=== PATIENT | male | born 1985 | race Caucasian/White ===

== ENCOUNTER 2018-03-07 15:53 | Emergency (ER) | payer SELFPAY ==
[2018-03-07 15:54] VITALS: BP 155/77; PULSE 95; RESP 15; RESP 18; TEMP 36.6; O2SAT 96; O2SAT 97; BMI 34.4
--- NOTE | 2018-03-07 16:21 | ED.DCSUM_ITS ---
- ER Visit Summary Date of Service: 03/07/18 Chief Complaint: Elevated blood pressure History of Present Illness: The patient is a 33 M presents with elevated blood pressure that has been getting worse over the past week. Patient states it is worse when he is at work doing physical activity. Patient states that blood pressure improves when he is at rest. Patient states when his blood pressure is elevated developed a bitemporal headache and some pain across his lower thoracic area. Patient states he also gets some intermittent short stabbing pains in the left upper chest near the shoulder. Patient denies any shortness of breath. Patient denies any nausea or vomiting. Patient denies any visual changes. Patient denies any urinary complaints. Patient denies any other symptoms. Patient states he has a prior history of hypertension and has been on Cartia in the past grade patient states he is not currently on any antihypertensive medication. Physical Examination: Vital signs are stable. Patient is afebrile. Patient is in no acute distress. Oral mucosa is pink and moist. Neck is supple. Trachea is midline. There is no JVD noted. Heart was regular rate and rhythm. Lungs are clear and equal bilateral. Abdomen is soft. Bowel sounds are normal. There is no tenderness. There is no guarding noted. Skin is warm dry. Cranial nerves II through XII are intact. There are no focal motor or sensory deficits noted. The remaining physical exam is within normal limits. Test Results: CBC, comprehensive metabolic profile, and urinalysis were obtained and were all normal. Emergency Department Course and Treatment: Patient's blood pressure was only mildly elevated throughout his emergency department stay. Patient was instructed to follow-up with his primary care physician in 3-5 days. Patient was instructed to keep a log of his blood pressures. At this point, I do not feel the patient needs to be started on any antihypertensive medication. Patient was instructed to return if worse in any way. Patient understood and was agreeable with the plan. All questions were answered. Disposition: Discharge home Impression: Hypertension This note was generated with [employer] dictation software. It may contain incorrect words, spelling, and punctuation that were not noted in review of the chart prior to signing ED Disposition - Plan for ED Patient: Disposition: Home or Assisted Living Chief Complaint: Hypertension Diagnosis: Hypertension Instructions: ED Hypertension Poss Referrals: NOT,DEFINED [NON-STAFF] - Preet Childress DO [STAFF PHYSICIAN] -
[2018-03-07 16:47] LABS: Bacteria 0 SEEN /hpf (None Seen); Red Blood Cells-Urine 0 SEEN /hpf (0-5); Squamous Epithelial Cells - UA 0 SEEN /hpf (0-5); White Blood Cells 0 SEEN /hpf (0-5)
[2018-03-07 16:50] LABS: Color, Urine Yellow (Yellow); Glucose, Dipstick Normal (Normal); Ketone-Dipstick Negative (Negative); Leukocyte Esterase-Dipstick Negative /ul (Negative); Nitrite-Dipstick Negative (Negative); Occult Blood-Urine Negative /ul (Negative); Protein-Dipstick Negative (Negative); Specific Gravity, Urine 1.025 (1.002-1.030); Urine Bilirubin Dipstick Negative (Negative); Urine Clarity Clear (Clear); Urine Urobilinogen Normal (Normal)
[2018-03-07 16:51] LABS: Absolute Neutrophil Count 6.2 X10^3/uL (2.0-7.7); Basophil# 0.02 X10^3/uL; Basophil% 0.2 % (0-1); Eosinophil# 0.14 X10^3/uL; Eosinophils% 1.5 % (0-5); Hematocrit 46.4 % (40-54); Hemoglobin 16.2 g/dl (13.0-16.5); Lymphocyte % 21.5 % (19-41); Mean Corp Hgb Conc 34.9 g/gl (32-36); Mean Corpuscular Hgb 30.3 pg (27.0-32.0); Mean Corpuscular Volume 86.9 fL (80-94); Mean Platelet Vol. 10.4 fl (6.2-12.0); Monocyte# 0.93 X10^3/uL; Neutrophil % 66.5 % (47-70); Platelet Count 269 K/mm3 (150-450); RBC Distribution Width CV 12.6 % (11.6-14.6); RBC Distribution Width SD 39.8 fl (35.1-43.9); Red Blood Count 5.34 M/mm3 (4.6-6.2); White Blood Count 9.3 K/mm3 (4.4-11.0)
[2018-03-07 17:03] LABS: Anion Gap 7 (5-15); BUN 17 mg/dL (7-18); BUN/Creat Ratio 16.3 RATIO (10-20); Chloride 105 mmol/L (98-107); Creatinine, Serum 1.04 mg/dL (0.70-1.30); EST Glomerular Filtration Rate 87 mL/min (>60); Est Glom Filt Rate - Afr Amer 105 mL/min (>60); Estimated Creatinine Clearance 90.32 ml/min; Glucose 88 mg/dL (74-106); POSITIVE COUNT NO; POSITIVE DIFFERENTIAL NO; POSITIVE MORPHOLOGY NO; Potassium 4.1 mmol/L (3.5-5.1); Sodium Level 139 mmol/L (136-145)
[2018-03-07 17:40] LABS: Mucous, Urine RARE /hpf (<or=2+)
[2018-03-07 18:09] VITALS: BP 153/98; PULSE 71; RESP 16; O2SAT 100
[2018-03-07 18:24] VITALS: BP 151/78; PULSE 69; RESP 16; O2SAT 98
--- OUTSIDE RECORDS SUMMARY | 2018-05-09 22:54 | XMS RPT_ITS ---
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 pleural thickening. BONES: Normal. No fracture or visible bony lesion. OTHER: Negative. CONCLUSION: No acute disease. Dictated by: Paulette Sneed MD on 12/14/2017 at 6:40 Approved by: Paulette Sneed MD on 12/14/2017 at 6:40 EMERGENCY REPORT Observed: 12/13/2017 Status: F Source: [facility] 7:33 PM [facility] EMERGENCY ROOM REPORT NAME ACCOUNT SEX AGE ADMIT DISCHARGE PT MED. RECORD# NUMBER DATE DATE TYPE ROX BADILLO [id number] M 32 12/13/17 12/13/17 3 J [id number] ROOM: ER DATE OF : 1985 DICTATING PHYSICIAN: Deo Negron TIME SEEN: 9 p.m. HISTORY OF PRESENT ILLNESS: This is a 32-year-old white male complaining of a cough productive of green to clear sputum. He has had the cough for the past week, and it is getting worse. The cough is much worse with laying down. Four days ago, he was seen at [facility]. He states he was given 4 Zithromax, which did not help. He states the coughing spells sometimes are so bad that it makes him very short of breath. They did also give him a Ventolin inhaler, and he states that is helping a little bit, but the cough just becomes more persistent in between inhaler episodes. He does admit to some exertional shortness of breath. PAST MEDICAL HISTORY: Hypertension and ulcers. PAST SURGICAL HISTORY: Denied. ALLERGIES: No known drug allergies. SOCIAL HISTORY: He is a smoker of one pack per day. He does admit to occasional alcohol use. He denies any illicit drug use. He lives at home with his family. REVIEW OF SYSTEMS: He denies any fevers, sweats or chills. He denies any chest pain. He does admit to shortness of breath and cough. He does admit to green to clear sputum. He denies any wheezing, abdominal pain, nausea, vomiting, diarrhea, constipation, melena, hematochezia, headache, numbness, unsteady gait, weakness, neck or back pain, joint pain, skin rash or swelling, hives, hay fever, or swollen glands. Further review of systems is negative. PHYSICAL EXAMINATION: Vital signs: Blood pressure is 138/80, pulse 78, respirations 16, temperature 97.5, pulse oximetry 97% on room air, and weight 185 pounds. The patient is alert and oriented x3. He presently appears in some mild distress with a persistent moist cough. He does speak in full sentences, however. HEENT: Pupils are equal and reactive to light. Red reflexes are intact bilaterally. Extraocular muscles are intact. No conjunctival injection. No scleral icterus or lid edema. Ears: TMs are intact bilaterally. No erythema noted. No external auditory canal edema or bleeding. Nose exhibits some clear rhinorrhea. He does have percussible tenderness over the right maxillary sinus. No facial swelling. Mouth: Mucous membranes are moist. No Page 1 of 2 ROX BADILLO Emergency Room Report pharyngeal erythema with copious postnasal drainage. Uvula is midline and elevates. Neck is supple. Trachea is midline. No JVD or lymphadenopathy. No posterior cervical tenderness. No nuchal rigidity. Lungs demonstrate crackles in the right anterior and posterior lung barajas. The left side is diminished, but I do not hear any crackles or wheezing. No accessory muscle use but a very persistent cough noted. CV: Heart rate and rhythm are regular without murmur. Abdomen is soft and nontender with normoactive bowel sounds x4 quadrants. No guarding or rigidity. No rebound. No palpable abdominal masses. No hepatosplenomegaly. Back exhibits no midline or paraspinal region tenderness. No increased paraspinal muscle rigidity. Negative Antonio's sign. Extremities: No edema or cyanosis. Peripheral pulses are intact. No motor or sensory deficits are noted. Hand telegraph messenger are strong and symmetric. Skin is warm and dry. No diaphoresis or rash. EMERGENCY DEPARTMENT COURSE AND TREATMENT: Presently at this point, since he has been treated with antibiotics and he has been already seen once for this and is getting worse, I am going to do a chest x-ray, and we will give him an albuterol aerosol treatment here. I am going to give him a dose of Augmentin p.o., and then we will see what his chest x-ray looks like. Dictated By: Deo Negron DO 12/13/17 21:37 JOB #: [id number] Transcribed By: randy 12/14/17 06:26 Electronically signed by: E-Sign: Dr. Deo Negron D.O. 12/14/17 23:46 Page 2 of 2 ROX BADILLO Emergency Room Report EMERGENCY REPORT Observed: 12/13/2017 Status: F Source: [facility] 7:33 PM [facility] REPOSITORY [facility] EMERGENCY ROOM REPORT NAME ACCOUNT SEX AGE ADMIT DISCHARGE PT MED. RECORD# NUMBER DATE DATE TYPE ROX BADILLO [id number] M 32 12/13/17 12/13/17 3 J [id number] ROOM: ER DATE OF : 1985 DICTATING PHYSICIAN: Deo Negron ADDENDUM DIAGNOSTIC DATA: Chest x-ray showed no acute infiltrate or failure. EMERGENCY DEPARTMENT COURSE AND TREATMENT: The patient was placed on Augmentin 500 mg one p.o. every 8 hours, dispense #30 with no refill; Tessalon 200 mg one every 8 hours as needed for cough, dispense #30 with no refill and ibuprofen 800 mg one every 8 hours as needed for pain, dispense #20 with no refill. He is to continue to use his albuterol inhaler as prescribed, 2 puffs every 6 hours as needed. Follow up with [facility] in 3 to 5 days for reevaluation. Take the medications as prescribed. Return here if symptoms become worse. The patient was discharged in a clinically stable condition. Nurse's note reviewed. DIAGNOSES: 1. Sinusitis. 2. Bronchitis. Dictated By: Deo Negron DO 12/13/17 22:51 JOB #: [id number] Transcribed By: randy 12/14/17 07:19 Electronically signed by: E-Sign: Dr. Deo Negron D.O. 12/14/17 23:46 Page 1 of 1 MARIANN BADILLOUA [facility] Emergency Room Report EMERGENCY ROOM VISIT Observed: 11/28/2017 Status: F Source: [facility] REPORT 4:38 PM HOSPITAL REPOSITORY [address] [place], [place] [id number] ROX BADILLO 1985 (32 M) [id number] [facility] ED Report #: [id number] PCP: No Doctor Emergency Room Visit Report Date of Service: 11/28/17 Date/Time: 11/28/17 1638 Report Status: Signed Upper Extremity Injury HPI Information Source: patient Mode of Arrival: walk-in Limitations: no limitations - Travel Screening Traveled Out Of Country In Last 30 Days: No (Or) Been in Contact With Ill Person Who Has Traveled: No - History of Present Illness Complaint: right, shoulder injury Description of Symptoms: Right shoulder injury after pushing on something at work. Over extended it , with a pop. [place] like a screwdriver being dug into the shoulder. 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 This happened 2 days ago. He was at work and had his right arm extended out trying to grab something and he pulled and felt a sudden onset of pain to his shoulder and radiated down to his elbow. He did not go to work today secondary to this pain. He describes being able to move his shoulder fairly well but just has pain if he gets in the right position and also has the occasional pins and needles sensation to his finger tips his happened about twice today. He denies any other injuries. - Pain Assessment rt shoulder Intensity: 8 - Immunizations Immunizations Up to Date: yes Patient Tetanus UTD (Within 5 Years): yes Flu Vaccine: seasonal - Allergies/Home Meds Allergy to Contrast: No Allergy to Iodine/Shellfish: No Allergies Allergy/AdvReac Type Severity Reaction Status Date / Time No Known Drug Allergies Allergy Unverified 11/28/17 16:10 Home Medications Medication Instructions Recorded Confirmed Ibuprofen 600 mg PO Q6H PRN #15 tab 11/28/17 ROS All Other Systems: 10 systems were reviewed and negative except as noted above Past Medical History Cardiovascular: Hypertension - Social History Smoking Status: Current Every Day Smoker # Packs per Day: 1 Pack per Day Alcohol Use: None Drug Use: None Physical Exam Vital Signs on Arrival Temperature 98.1 F 11/28/17 16:08 Pulse Rate 72 11/28/17 16:08 Respiratory Rate 18 11/28/17 16:08 Blood Pressure 140/85 11/28/17 16:08 O2 Sat by Pulse Oximetry 98 11/28/17 16:08 Vital Signs - Last Documented Temperature 98.1 F 11/28/17 16:09 Pulse Rate 72 11/28/17 16:09 Respiratory Rate 18 11/28/17 16:09 Blood Pressure 140/85 11/28/17 16:09 O2 Sat by Pulse Oximetry 98 11/28/17 16:08 Vital signs reviewed: reviewed and appear correct - General Limitations: no limitations General appearance: alert, in no apparent distress - Head Head exam: atraumatic, normocephalic, normal visual inspection - Eye Eye exam: Present: normal visual inspection, PER, EOMI - ENT ENT exam: normal visual inspection - Neck Neck exam: Present: normal visual inspection, trachea midline - Chest Chest inspection: Present: symmetric chest wall rise - Respiratory Respiratory exam: Present: respirations easy, unlabored - Cardiovascular Cardiovascular exam: Present: regular rate, normal rhythm - Expanded Upper Extremity Exam Right Clavicle Exam: Present: normal inspection Shoulder exam: Present: normal inspection. Absent: tenderness, swelling, tenderness over AC joint Arm exam: Present: normal inspection. Absent: swelling Vascular exam: Normal: intact and normal, capillary refill - Neurological Exam Neurological exam: Present: alert, oriented X3, CN II-XII grossly intact - Psychiatric Psychiatric exam: Present: normal affect, normal mood, cooperative - Skin Skin exam: Present: warm, dry, intact, normal color. Absent: diaphoresis, pallor Results Radiology results reviewed Course ED Orders Category Date Time Status SHOULDER ROUTINE Stat Exams 11/28/17 16:12 Taken Upper Extremity Injury MDM X-ray of the shoulder is negative for any acute fracture. There is no signs of AC separation. He is distally neurovascular intact. He is moving his arm around during my evaluation showing me exactly how it happened. He has no limitations there. We are going to give him anti- inflammatories recommend icing have return to work in 2 days. If this persists he will need to follow up with [facility]. Testing Ordered: Radiology 11/28/17 16:12 SHOULDER ROUTINE Stat Disposition - Disposition Clinical Impression: Shoulder strain Qualifiers: Encounter type: initial encounter Laterality: right Qualified Code(s): S46.911A - Strain of unspecified muscle, fascia and tendon at shoulder and upper arm level, right arm, initial encounter Prescriptions/Home Medication: New Ibuprofen 600 mg PO Q6H PRN #15 tab PRN Reason: Pain Follow-Up: Doctor,No [Primary Care Provider] - [facility] Forms: Off Work/School Additional Instructions: Ice your shoulder for 20 min 3 times daily. Discharge Disposition: Discharged Electronically Signed By: PHILL Gustafson 11/28/171999 Morro Ford MD 12/01/17 0700 I was personally available for consultation in the ED, but I did not see the patient. Electronically Cosigned By: Morro Ford MD Cosigned Date/Time: 12/01/17 07 SHOULDER ROUTINE Observed: 11/28/2017 Status: F Source: [facility] 4:12 PM HOSPITAL REPOSITORY [place] [address] Pt Location: ED/ DEP ER Pt RM#: MR #: [id number] PERFORMED DATE: 11/28/171611 ADM#: [id number] Patient: ROX BADILLO : 1985 Age/Sex: 32 / M REPORT STATUS: Signed ORDERING PHYSICIAN: PHILL Gustafson PRIVATE/PRIMARY PHYSICIAN: Doctor,No HISTORY/REASON: R SHOULDER INJURY CLINICAL HISTORY: Right shoulder pain. TECHNICAL FACTORS: 3 views right shoulder. EXAMINATION: SHOULDER ROUTINE FINDINGS: The alignment of the osseous structures in the right shoulder is not disrupted. There is no evidence of fracture. The visualized ribs, the visualized part of the lung show no definite abnormality. IMPRESSION: There is no evidence of fracture or dislocation. REPORT# [id number] FILMS READ BY: Lynnette Barraza M.D. 11/28/17 1628 FINAL REPORT RELEASED BY: Lynnette Barraza M.D. 11/29/17 0812 Transcribed Date/Time: 11/28/17 1736 JLE CC: PHILL Gustafson; Doctor,No D-DIMER Collected: 08/08/2017 Status: F Source: [facility] 4:35 PM HOSPITAL REPOSITORY TYPE CODE TESTS RESULT OUT OF RANGE REFERENCE UNITS LAB DD <230 D Dimer Un ng/mL D-DIMER <200 Result Comment: Quantitative determination of D Dimer in human plasma is for use in conjunction with a clinical assesment to EXCLUDE venous thromboembolism (VTE) in outpatients suspected of deep venous thrombosis (DVT) and pulmonary embolism (PE). Performed By: #### DD #### MAIN LAB CLIA:[id number] [address] [place] [address] COMPLETE BLOOD COUNT Collected: 08/08/2017 Status: F Source: [facility] 4:35 PM HOSPITAL REPOSITORY TYPE CODE TESTS RESULT OUT OF REFERENCE UNITS RANGE LAB WBC 4.8-10.8 10 3/cmm WHITE BLOOD Normal COUNT 6.8 LAB RBC 4.60-6.20 10 6/cmm RED BLOOD Normal COUNT 5.21 LAB HGB 13.5-18.0 g/dL HEMOGLOBIN Normal 15.9 LAB HCT 40.0-54.0 % HEMATOCRIT Normal 45.5 LAB MCV 80.0-96.0 fL MEAN Normal CORPUSCULAR 87.4 VOLUME LAB MCH 27.0-31.0 pg MEAN Normal CORPUSCULAR 30.6 HEMOGLOBIN LAB MCHC 32.0-36.0 g/dL MEAN Normal CORPUSCULAR HGB 35.0 CONC LAB RDW 11.5-14.5 RED CELL Normal DISTRIBUTION 13.2 WIDTH LAB PLTT 130-400 10 3/cmm PLATELET Normal COUNT 234 LAB NE% 50.0-70.0 % NEUTROPHILS Normal % (AUTO) 55.3 LAB ABSEG 1579-7573 /cmm ABSOLUTE Normal SEGS 3700 LAB LY% 20.0-44.0 % LYMPHOCYTES Normal % (AUTO) 27.5 LAB ABLYM 960-4752 /cmm ABSOLUTE Normal LYMPHS 1900 LAB MO% 2.0-9.0 % MONOCYTES % High (AUTO) 12.2 LAB ABMONO 96-972 /cmm ABSOLUTE Normal MONOCYTES 800 LAB EO% <4.0 % EOSINOPHILS High % (AUTO) 4.4 LAB ABEOS <432 /cmm ABSOLUTE EOSINOPHILS 300 LAB BA% <2.0 % BASOPHILS % (AUTO) 0.6 LAB ABBASO <216 /cmm ABSOLUTE BASOPHILS 0 Performed By: #### CBC #### MAIN LAB CLIA:[id number] [address] [place] [address] TROPONIN T Collected: 08/08/2017 Status: F Source: [facility] 4:35 PM HOSPITAL REPOSITORY TYPE CODE TESTS RESULT OUT OF REFERENCE UNITS RANGE LAB TROPT <0.010 ng/mL TROPONIN T <0.010 Result Comment: Values > or = 0.01 ng/mL have been shown to have prognostic value. Troponin T values > or = 0.01 ng/mL are a prognostic sign in patients with ischemic heart disease. Clinical judgment is necessary to distinguish patients who have ischemic heart disease from those who do not. Patients with low level(<0.20 ng/mL)elevations of troponin T and diagnostic uncertainty for acute coronary syndrome should be evaluated by repeat measurements at 4 and 8 hours. Performed By: #### TROPT #### MAIN LAB CLIA:[id number] [address] [place] [address] COMPREHENSIVE METABOLIC Collected: 08/08/2017 Status: F Source: [facility] PANEL 4:35 PM HOSPITAL REPOSITORY TYPE CODE TESTS RESULT OUT OF RANGE REFERENCE UNITS LAB NA 136-145 mmol/L SODIUM Normal 137 LAB K 3.5-5.1 mmol/L Normal POTASSIUM 4.3 LAB CL 98-107 mmol/L CHLORIDE Normal 103 LAB CO2 22-29 mmol/L CARBON Normal DIOXIDE 25 LAB GAP 9-18 ANION Normal GAP 13 LAB BUN 6-20 mg/dL BLOOD Normal UREA NITROGEN 16 LAB ZCRET 0.70-1.20 mg/dL Normal CREATININE 0.81 LAB GFR >60 mL/min /1.73 m2 GFR 117 Result Comment: Normal Range Stage Description: 1 Normal or Increased GFR >=90 2 Mild Decrease in GFR 60-90 3 Moderately Decreased GFR 30-59 4 Severely Decreased GFR 15-29 5 Kidney Failure <15 LAB BCRATIO BUN/CREATININE RATIO 19.8 LAB GLUC 74-109 mg/dL High GLUCOSE 112 LAB CA 8.6-10 mg/dL .0 CALCIUM Normal 8.9 LAB BILIT 0.2-1. mg/dL 2 BILIRUBIN,TOTAL Normal 0.4 LAB AST 0-40 U/L ASPARTATE AMINO Normal TRANSFERASE 14 LAB ALT 0-41 U/L ALANINE Normal AMINOTRANSFERASE 28 LAB TP 6.4-8. g/dL Low 3 TOTAL PROTEIN 6.0 LAB ALB 3.0-4. g/dL 5 ALBUMIN Normal 4.1 LAB GLOB 2.3-3. g/dL Low 5 GLOBULIN 1.9 LAB AGRATIO 1-1.4 ratio High ALBUMIN/GLOBULIN RATIO 2.2 LAB ALKP 40-129 U/L ALKALINE PHOSPHATASE Normal 50 Performed By: #### CMP #### MAIN LAB CLIA:[id number] [address] [place] [address] THYROID STIMULATING Collected: 08/08/2017 Status: F Source: [facility] HORMONE 4:35 PM HOSPITAL REPOSITORY TYPE CODE TESTS RESULT OUT OF RANGE REFERENCE UNITS LAB TSH 0.27-4.20 uIU/mL THYROID Normal STIMULATING 3.58 HORMONE Performed By: #### TSH #### MAIN LAB CLIA:[id number] [address] [place] [address] EMERGENCY ROOM VISIT Observed: 08/08/2017 Status: F Source: [facility] REPORT 4:18 PM HOSPITAL REPOSITORY [address] [place] [address] ROX BADILLO 1985 (32 M) [id number] Morro Ford MD ED Report #: [id number] PCP: No Doctor Emergency Room Visit Report Date of Service: 08/08/17 Date/Time: 08/08/17 1618 Report Status: Signed Chest Pain HPI Information Source: patient Mode of Arrival: walk-in Limitations: no limitations - Travel Screening Traveled Out Of Country In Last 30 Days: No (Or) Been in Contact With Ill Person Who Has Traveled: No - History of Present Illness Complaint: chest pain Description of Symptoms: CP since this morning. Feels like he is being stabbed in his chest. it radiates up the right side of his neck, shoulder down his fingers. He states that he has CP every other month. 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 He says he has been to his physician as well as multiple ERs in [facility], and it was basically decided that he was having chest discomfort due to high blood pressure he has been on car T a for quite some time, however because he is new to the area does not have an established physician, he is now this medicine about a month. Says being out medicine, he said his nose for chest pain. Chest pain is located in the front left sternum is nonradiating and associated with shortness of breath, diaphoresis, nausea, vomiting, or fever. - Pain Assessment CP Intensity: 8 - Immunizations Immunizations Up to Date: yes Patient Tetanus UTD (Within 5 Years): yes Flu Vaccine: seasonal - Allergies/Home Meds Allergy to Contrast: No Allergy to Iodine/Shellfish: No Allergies Allergy/AdvReac Type Severity Reaction Status Date / Time No Known Drug Allergies Allergy Unverified 08/08/17 15:53 Home Medications Medication Instructions Recorded Confirmed dilTIAZem HCl [Cartia Xt] 120 mg PO DAILY #30 cap.er.24h 08/08/17 ROS All Other Systems: 10 systems were reviewed and negative except as noted above Neurological: no symptoms reported ENT: no symptoms reported Cardiovascular: no symptoms reported Musculoskeletal: no symptoms reported Integumentary: no symptoms reported Gastrointestinal: no symptoms reported Past Medical History Cardiovascular: Hypertension - Social History Smoking Status: Current Every Day Smoker # Packs per Day: 1 Pack per Day Alcohol Use: Rarely Drug Use: None Physical Exam Vital Signs on Arrival Temperature 98.0 F 08/08/17 15:51 Pulse Rate 62 08/08/17 15:51 Respiratory Rate 18 08/08/17 15:51 Blood Pressure 139/77 08/08/17 15:51 O2 Sat by Pulse Oximetry 97 08/08/17 15:51 Vital Signs - Last Documented Temperature 98.0 F 08/08/17 15:53 Pulse Rate 60 08/08/17 17:27 Respiratory Rate 16 08/08/17 17:27 Blood Pressure 140/80 08/08/17 17:27 O2 Sat by Pulse Oximetry 99 08/08/17 17:27 Vital signs reviewed: reviewed and appear correct - General Limitations: no limitations General appearance: alert, in no apparent distress - Head Head exam: atraumatic, normocephalic, normal visual inspection - Eye Eye exam: Present: normal visual inspection, PER, EOMI - ENT ENT exam: normal visual inspection, mucous membranes moist - Neck Neck exam: Present: normal visual inspection, trachea midline. Absent: tenderness, meningismus, JVD - Chest Chest inspection: Present: symmetric chest wall rise - Respiratory Respiratory exam: Present: normal lung sounds bilaterally, respirations easy, unlabored. Absent: respiratory distress, wheezes, rales, rhonchi, stridor, accessory muscle use - Cardiovascular Cardiovascular exam: Present: regular rate, normal rhythm, normal heart sounds - GI/Abdominal Exam Abdominal exam: Present: soft. Absent: tenderness, guarding, rebound - Neurological Exam Neurological exam: Present: alert, oriented X3, CN II-XII grossly intact - Psychiatric Psychiatric exam: Present: normal affect, normal mood, cooperative - Skin Skin exam: Present: warm, dry, intact, normal color. Absent: diaphoresis, pallor Results Laboratory results reviewed, Radiology results reviewed 08/08/17 16:35 08/08/17 16:35 Laboratory Results 08/08/17 08/08/17 08/08/17 Range/Units 16:35 16:35 16:35 WBC (4.8-10.8) 10 3/cmm RBC (4.60-6.20) 10 6/cmm Hgb (13.5-18.0) g/dL Hct (40.0-54.0) % MCV (80.0-96.0) fL MCH (27.0-31.0) pg MCHC (32.0-36.0) g/dL RDW (11.5-14.5) Plt Count (130-400) 10 3/cmm Neut % (Auto) (50.0-70.0) % Lymph % (Auto) (20.0-44.0) % Nance % (Auto) (2.0-9.0) % Eos % (Auto) (<4.0) % Baso % (Auto) (<2.0) % Abs Neuts cells/mm3 (3762-8754) /cmm Lymphocytes # (960-4752) /cmm Monocytes # (96-972) /cmm Eosinophils # (<432) /cmm Basophils # (<216) /cmm D-Dimer <200 (<230 D Dimer) Un ng/mL Sodium 137 (136-145) mmol/L Potassium 4.3 (3.5-5.1) mmol/L Chloride 103 (98-107) mmol/L Carbon Dioxide 25 (22-29) mmol/L Anion Gap 13 (9-18) BUN 16 (6-20) mg/dL Creatinine 0.81 (0.70-1.20) mg/dL GFR Calculation 117 (>60 mL/min) /1.73 m2 BUN/Creatinine Ratio 19.8 Glucose 112 H (74-109) mg/dL Calcium 8.9 (8.6-10.0) mg/dL Total Bilirubin 0.4 (0.2-1.2) mg/dL AST 14 (0-40) U/L ALT 28 (0-41) U/L Alkaline Phosphatase 50 (40-129) U/L Troponin T <0.010 (<0.010) ng/mL Total Protein 6.0 L (6.4-8.3) g/dL Albumin 4.1 (3.0-4.5) g/dL Globulin 1.9 L (2.3-3.5) g/dL Albumin/Globulin Ratio 2.2 H (1-1.4) ratio 06/25/18 Range/Units 16:35 WBC 6.8 (4.8-10.8) 10 3/cmm RBC 5.21 (4.60-6.20) 10 6/cmm Hgb 15.9 (13.5-18.0) g/dL Hct 45.5 (40.0-54.0) % MCV 87.4 (80.0-96.0) fL MCH 30.6 (27.0-31.0) pg MCHC 35.0 (32.0-36.0) g/dL RDW 13.2 (11.5-14.5) Plt Count 234 (130-400) 10 3/cmm Neut % (Auto) 55.3 (50.0-70.0) % Lymph % (Auto) 27.5 (20.0-44.0) % Nance % (Auto) 12.2 H (2.0-9.0) % Eos % (Auto) 4.4 H (<4.0) % Baso % (Auto) 0.6 (<2.0) % Abs Neuts cells/mm3 3700 (4181-7367) /cmm Lymphocytes # 1900 (960-4752) /cmm Monocytes # 800 (96-972) /cmm Eosinophils # 300 (<432) /cmm Basophils # 0 (<216) /cmm D-Dimer (<230 D Dimer) Un ng/mL Sodium (136-145) mmol/L Potassium (3.5-5.1) mmol/L Chloride (98-107) mmol/L Carbon Dioxide (22-29) mmol/L Anion Gap (9-18) BUN (6-20) mg/dL Creatinine (0.70-1.20) mg/dL GFR Calculation (>60 mL/min) /1.73 m2 BUN/Creatinine Ratio Glucose (74-109) mg/dL Calcium (8.6-10.0) mg/dL Total Bilirubin (0.2-1.2) mg/dL AST (0-40) U/L ALT (0-41) U/L Alkaline Phosphatase (40-129) U/L Troponin T (<0.010) ng/mL Total Protein (6.4-8.3) g/dL Albumin (3.0-4.5) g/dL Globulin (2.3-3.5) g/dL Albumin/Globulin Ratio (1-1.4) ratio X-Ray Chest Result: no acute findings Findings: Important Finding for CR CHEST created on 08/08/2017 at 04:26 PM EDT [[id number]] for ABYROX [[id number]] Reason: No Acute Findings Expiration date: 08/16/2017 04:45 PM EDT Action Time User Finding Note IMPORTANT 08/08/2017 04:45 PM EDT LYNNETTE BARRAZA M.D. No Acute Findings Interpreted By: by radiologist ECG #1 Date of EC08/08/17 Rhythm: NSR Rate: normal P Waves: normal ST Segment: normal T Waves: normal Interpreted By: ED provider Comparison to Prior ECG: no significant changes Course ED Orders Category Date Time Status ECG Stat Cardiology 08/08/17 15:53 Completed CXR [CHEST 2 VIEWS] Stat Exams 08/08/17 16:17 Taken COMPLETE BLOOD COUNT Stat Lab 08/08/17 16:35 Completed COMPREHENSIVE METABOLIC PANEL Stat Lab 08/08/17 16:35 Completed D-DIMER Stat Lab 08/08/17 16:35 Completed THYROID STIMULATING HORMONE Stat Lab 08/08/17 16:35 Received TROPONIN T Stat Lab 08/08/17 16:35 Completed Chest Pain MDM Differential Diagnosis: stable angina, costalchondritis, atypical chest pain, unstable angina pectoris, st elevation myocardial, gastritis, GERD, biliary colic, esophagitis, esophageal spasm, chest wall strain, pneumonia, aortic aneurysm, pulmonary embolism Testing Ordered: Laboratory 08/08/17 16:35 COMPLETE BLOOD COUNT Stat COMPREHENSIVE METABOLIC PANEL Stat D-DIMER Stat THYROID STIMULATING HORMONE Stat TROPONIN T Stat Radiology 08/08/17 16:17 CXR [CHEST 2 VIEWS] Stat Cardiology 08/08/17 15:53 ECG Stat Disposition - Disposition Clinical Impression: Atypical chest pain Hypertension Qualifiers: Hypertension type: essential hypertension Qualified Code(s): I10 - Essential (primary) hypertension Prescriptions/Home Medication: New dilTIAZem HCl [Cartia Xt] 120 mg PO DAILY #30 cap.er.24h Follow-Up: DoctorJosefina [Primary Care Provider] - Patient Education: Hypertension (ED) [facility] Forms: Phys Accepting New Patients Additional Instructions: I recommend he see a family physician, within the next few weeks, for recheck on your blood pressure and your chest pain Discharge Disposition: Discharged Electronically Signed By: Morro Ford MD 08/08/17 3481 Electronically Cosigned By: Cosigned Date/Time: CHEST 2 VIEWS Observed: 08/08/2017 Status: F Source: [facility] 4:17 PM HOSPITAL REPOSITORY [place] [address] Pt Location: ED/ DEP ER Pt RM#: MR #: [id number] PERFORMED DATE: 08/08/171616 ADM#: [id number] Patient: ROX BADILLO : 1985 Age/Sex: 32 / M REPORT STATUS: Signed ORDERING PHYSICIAN: Morro Ford MD PRIVATE/PRIMARY PHYSICIAN: Josefina Jeffries HISTORY/REASON: CP, RIGHT SIDE PAIN CLINICAL HISTORY: Chest pain. TECHNICAL FACTORS: Two view chest on 08/08/17. EXAMINATION: CHEST 2 VIEWS FINDINGS: The cardiac silhouette appears unremarkable. The lung barajas are hyperinflated. Bony structures show no abnormalities. IMPRESSION: Hyperinflated lung barajas. I see no definite infiltrates, effusions or pneumothorax. REPORT# [id number] FILMS READ BY: Delmi Mosquera MD 08/09/17 0927 FINAL REPORT RELEASED BY: Delmi Mosquera MD 08/09/17 1232 Transcribed Date/Time: 08/09/17 1000 BAM CC: Doctor,No; Morro Ford MD EMERGENCY DEPARTMENT Observed: 07/05/2017 Status: F Source: [facility] 9:19 [place] [address] HEALTH INFORMATION MANAGEMENT EMERGENCY DEPARTMENT : [id number] Signed Patient: ROX BADILLO Acct:[id number] MRUN: [id number] : 1985 Sex: M Loc: ED ADM Date: 07/05/17 Room/Bed: DISC Date: History of Present Illness - General Chief complaint: Chest Pain Stated complaint: CHEST PAIN/SOB Symptom onset: 1 hour HPI: pt c/o midsternal, nonradiating, throbbing chest pain that started 1 hour ago after having an arguement with a significant other. Time Seen by Provider: 07/05/17 20:21 Nurses Notes Reviewed and Agreed With?: Yes Source: Patient Mode of Transport: Ambulatory - History of Present Illness Initial comments: Patient points of midsternal throbbing pain. Started less than an hour ago. He was in an argument with his girlfriend and then he got in his car and drove off. This is on the pain started. He was feeling short of breath at that time but is now better. He is no history of coronary disease but does have a strong family history. He denies any leg swelling. He does have a history of PTSD. - Related Data Home Medications Medication Instructions Recorded Confirmed Diltiazem HCl [Cartia Xt] 120 mg PO DAILY 12/13/16 06/11/17 Pantoprazole Sodium [Protonix 20 20 mg PO DAILY 12/13/16 06/11/17 mg Tablet] Allergies Allergy/AdvReac Type Severity Reaction Status Date / Time No Known Allergies Allergy Verified 07/05/17 20:26 Review of System - Constitutional Constitutional: Present: Well developed, Well nourished, Non-toxic - Nose,Throat,Mouth Nose (ROS): Absent: pain Throat: Absent: pain, swelling, discharge Mouth: Absent: pain, swelling - Respiratory Respiratory: Present: see HPI - CV Cardiology: Present: see HPI - GI Gastrointestinal/Abdominal: Absent: abdominal pain, diarrhea, nausea, vomiting - Genitourinary Symptoms: Absent: dysuria - Neuro Neurological: Absent: headache, weakness - Muskuloskeletal Musculoskeletal: Absent: back pain, joint pain, joint swelling - Integumentary Skin: Absent: lesions, rash - Allergic/Immunologic Immunological/Allergic: Present: no symptoms reported - Hematologic Hematologic/Lymphatic: Absent: easy bleeding, easy bruising, swollen glands - Endocrine Endocrine: Present: no symptoms reported - Psychiatric Psychiatric: Present: Normal Affect, Normal Mood. 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 - Reproductive Hx Reproductive Disorders: No - Psychological Hx Psychosocial Problems: Yes Other Psychological PMH: PTSD - HEENT Hx Ear, Nose Throat Disorders: No - Cancer Hx Cancer: No - Immunizations Hx Tetanus, Diphtheria Vaccination: Yes - Social History Highest Educational Level: High School Able to Read: Yes Able to Write: Yes Smoking Status: Heavy Smoker (>10 cig/day) Hx Chewing Tobacco Use: No Alcohol Use: Occasionally Any recreational drug use reported?: Yes (marijuana) Hx Substance Use Treatment: No Feels Threatened In Home Environment: No Feels Threatened In a Relationship: No Hx Physical Abuse: No Hx Emotional Abuse: No Hx Suspected Abuse: No - Family PMH Father Living Status: Still Living - Suicide/Homicide Screen Past 2 weeks, Have you felt down, depressed or hopeless?: No Past 2 Wks, Have you had thoughts killing yourself or others: No In your lifetime, have you attempt kill yourself or others?: No In your lifetime, When did this Happen?: Not Applicable General Exam - General Limitations: Complains of: no limitations Constitutional: Present: Well developed, Well nourished, well hydrated, Non-toxic - Head Head exam: Present: atraumatic, normocephalic, normal inspection - Eye Eye exam: Present: normal apperance, normal accomodation, EOMI Pupils: Present: PERRL - ENT ENT exam: Present: normal orophraynx, mucous membranes moist, No Nasal Discharge, normal external ear exam, Posterior Pharynx Non-erethemetous - Neck Neck exam: Present: full ROM, Supple. Absent: tenderness, meningismus, Posterior Lymphadenopathy, Anterior Lymphadenopathy - Respiratory Respiratory exam: Present: lungs clear equal bilaterally. Absent: respiratory distress, wheezes, rales, rhonchi, accessory muscle use - Cardiovascular Cardiovascular Exam: Present: regular rate, normal rhythm, normal heart sounds. Absent: murmur, rubs, gallop, clicks - GI/Abdominal GI/Abdominal exam: Present: soft, non tender, normal bowel sounds. Absent: guarding, rebound, rigid , mass, bruit - Back Exam Back exam: Present: normal inspection, full ROM. Absent: tenderness - Neurological Exam Neurological exam: Present: alert, oriented X3, CN II-XII intact - Skin Skin Color: Present: Normal, [place] Skin exam: Present: warm, dry - Vital Signs Vital Signs 07/05/17 07/05/17 20:22 20:57 Temperature 99.1 F Pulse Rate [ 75 78 Pulse Ox] Respiratory 23 H 16 Rate Blood Pressure 141/82 125/81 [Left Arm Lying ] O2 Sat by Pulse 97 98 Oximetry(%) Medical Desicion Making - Lab Data Lab Results 07/05/17 Range/Units 20:43 Troponin I, Quant < 0.017 (0.000-0.056) ng/mL Orders: Medications Discontinued Medications Aspirin (Aspirin 81 Mg Chew Tablet) 324 mg PO ONE ONE Stop: 07/05/17 20:27 Last Admin: 07/05/17 20:31 Dose: 324 mg Labs 07/05/17 20:26 12-Lead per nursing [RC] STAT CHEST PA/LAT [DIAG] Stat EKG [CAR] Stat Aspirin [Aspirin 81 mg Chew Tablet] 324 mg PO ONE ONE 07/05/17 20:43 Troponin i [CHM] Stat 07/05/17 21:17 Normal sinus rhythm with rate of 79. No ST changes. QTc 411 - Radiology Data Radiology Impressions Chest X-Ray 07/05/17 20:26 IMPRESSION: No radiographic evidence for acute pulmonary process. - Medical Decision Making The patient is given aspirin. EKG and chest x-ray both unremarkable. Troponin is normal. I feel this is likely related to anxiety or stress due to the situation. He will monitor this at home and will follow up with his PCP ED Discharge Summary - Discharge Data Clinical Impression: Chest pain Condition: Good Disposition: 01 HOME, SELF-CARE Referrals: LEOBARDO MENDEZ MD [Primary Care Provider] - Home Medications: Ambulatory Orders Medication Instructions Recorded Diltiazem HCl [Cartia Xt] 120 mg PO DAILY 12/13/16 Pantoprazole Sodium [Protonix 20 20 mg PO DAILY 12/13/16 mg Tablet] Time Seen by Provider: 07/05/17 20:21 - Dictation Amendments/Documentation: [employer] Document Only Electronically Generated By: JESUS CAMPUZANO MD Generated Date/Time: 07/05/172115 Electronically Signed By: JESUS CAMPUZANO MD Signed Date/Time 07/05/172117 Co Signed Electronically By: Co Signed Date/Time: CC: LEOBARDO MEDNEZ MD TROPONIN I Collected: 07/05/2017 Status: F [facility] REPOSITORY TYPE CODE TESTS RESULT OUT OF REFERENCE UNITS RANGE LAB TNI(LOINC) 0.000-0.056 ng/mL Troponin i. <0.017 Result Comment: </= 0.056 Troponin I Interpretation: Low probability of myocardial injury. Clinical correlation required. >0.056 Troponin I interpretation: Troponin I present. Diagnostic possibilities include, but are not limited to, unstable angina, micro myocardial injury, early myocardial injury, cardiomyopathy or myocardial infarct. Clinical correlation required. Troponin I testing performed on a Siemens Dimension analyzer which has a coefficient varient of <10 percent at the 99 th percentile as recommended by 2014 AHA NSTE?ACS guidelines and the third universal definition of PA. The 2012 Third [place] Definition of PA defines a positive troponin as an elevation of the troponin I value above the 99 th percentile of normal. Troponin I is the preferred biomarker overall and the only biomarker assessed for Chest Pain Accreditation purposes. Troponin I testing should be measured at presentation, and 3?6 hours after symptom onset in all patients presenting with ACS symptoms to identify a rising and/or falling pattern. Performed By: #### [facility] #### [address] [address] EMERGENCY DEPARTMENT Observed: 06/30/2017 Status: F Source: [facility] 1:40 [place] [address] HEALTH INFORMATION MANAGEMENT EMERGENCY DEPARTMENT : [id number] Signed Patient: ROX BADILLO Acct:[id number] MRUN: [id number] : 1985 Sex: M Loc: ED ADM Date: 06/30/17 Room/Bed: DISC Date: History of Present Illness - General Chief complaint: Injury Stated complaint: LEFT WRIST INJURY Time Seen by Provider: 06/30/17 13:07 Nurses Notes Reviewed and Agreed With?: Yes Source: Patient - History of Present Illness Initial comments: Patient has pain in the left wrist. He was working on a car when the bel slipped and his wrist was hit by a piece of the car. This occurred 20 minutes ago. He has pain on the palm side of the wrist. It's worse with movement. He took nothing for it. He does have a history of multiple fractures on that wrist. - Related Data Home Medications Medication Instructions Recorded Confirmed Diltiazem HCl [Cartia Xt] 120 mg PO DAILY 12/13/16 06/11/17 Pantoprazole Sodium [Protonix 20 20 mg PO DAILY 12/13/16 06/11/17 mg Tablet] Ibuprofen 800 mg PO TID PRN #30 tablet 05/04/17 06/11/17 Trazodone HCl [Desyrel] 1 tab PO QHS 05/04/17 06/11/17 Ibuprofen 800 mg PO TID PRN #30 tablet 05/06/17 06/11/17 Azithromycin [Zithromax 250 mg 250 mg PO DAILY #4 tablet 06/11/17 Tablet] Sertraline HCl 25 mg PO DAILY 06/11/17 06/11/17 Allergies Allergy/AdvReac Type Severity Reaction Status Date / Time No Known Allergies Allergy Verified 06/11/17 21:10 Review of System - Constitutional Constitutional: Present: Well developed, Well nourished, Non-toxic - Nose,Throat,Mouth Nose (ROS): Absent: pain Throat: Absent: pain, swelling, discharge Mouth: Absent: pain, swelling - Respiratory Respiratory: Absent: cough, short of breath, wheezing - CV Cardiology: Absent: chest pain, edema - GI Gastrointestinal/Abdominal: Absent: abdominal pain, diarrhea, nausea, vomiting - Genitourinary Symptoms: Absent: dysuria - Neuro Neurological: Absent: headache, weakness - Muskuloskeletal Musculoskeletal: Present: see HPI - Integumentary Skin: Absent: lesions, rash - Allergic/Immunologic Immunological/Allergic: Present: no symptoms reported - Hematologic Hematologic/Lymphatic: Absent: easy bleeding, easy bruising, swollen glands - Endocrine Endocrine: Present: no symptoms reported - Psychiatric Psychiatric: Present: Normal Affect, Normal Mood. 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 - Reproductive Hx Reproductive Disorders: No - Psychological Hx Psychosocial Problems: Yes Other Psychological PMH: PTSD - HEENT Hx Ear, Nose Throat Disorders: No - Cancer Hx Cancer: No - Immunizations Hx Tetanus, Diphtheria Vaccination: Yes - Social History Highest Educational Level: High School Able to Read: Yes Able to Write: Yes Smoking Status: Heavy Smoker (>10 cig/day) Hx Chewing Tobacco Use: No Hx Substance Use Treatment: No Hx Physical Abuse: No Hx Emotional Abuse: No Hx Suspected Abuse: No - Family PMH Father Living Status: Still Living General Exam - General Limitations: Complains of: no limitations Constitutional: Present: Well developed, Well nourished, well hydrated, Non-toxic - Head Head exam: Present: atraumatic, normocephalic, normal inspection - Eye Eye exam: Present: normal apperance, normal accomodation, EOMI Pupils: Present: PERRL - Expanded Upper Extremity Exam Hand Wrist exam: Present: normal inspection, tenderness (palm side of the wrist). Absent: full ROM (limited secondary to pain), swelling, laceration - Neurological Exam Neurological exam: Present: alert, oriented X3, CN II-XII intact - Skin Skin Color: Present: Normal, [place] Skin exam: Present: warm, dry - Vital Signs Vital Signs 06/30/17 13:12 Temperature 97.6 F Pulse Rate [ 62 Right VS Machine Sitting ] Respiratory 18 Rate Blood Pressure 123/75 [Left Arm Sitting] O2 Sat by Pulse 98 Oximetry(%) Medical Desicion Making - Lab Data Orders: Labs 06/30/17 13:12 LEFT WRIST MIN 3V [DIAG] Stat Naproxen [Naprosyn 250 mg Tablet] 500 mg PO ONE ONE - Radiology Data Radiology Report: Xrays interpreted by me as negative - Medical Decision Making Patient is given naproxen. X-rays are negative. He will ice and elevate and use NSAIDs. He will follow-up with his PCP ED Discharge Summary - Discharge Data Clinical Impression: Contusion of left wrist, initial encounter Condition: Good Disposition: 01 HOME, SELF-CARE Admit is Medically Necessary, Anticipated Stay >2 Midnights:: No Referrals: LEOBARDO MENDEZ MD [Primary Care Provider] - Home Medications: Ambulatory Orders Medication Instructions Recorded Diltiazem HCl [Cartia Xt] 120 mg PO DAILY 12/13/16 Pantoprazole Sodium [Protonix 20 20 mg PO DAILY 12/13/16 mg Tablet] Ibuprofen 800 mg PO TID PRN #30 tablet 05/04/17 Trazodone HCl [Desyrel] 1 tab PO QHS 05/04/17 Ibuprofen 800 mg PO TID PRN #30 tablet 05/06/17 Azithromycin [Zithromax 250 mg 250 mg PO DAILY #4 tablet 06/11/17 Tablet] Sertraline HCl 25 mg PO DAILY 06/11/17 Time Seen by Provider: 06/30/17 13:07 - Dictation Amendments/Documentation: [employer] Document Only Electronically Generated By: JESUS CAMPUZANO MD Generated Date/Time: 06/30/17 1319 Electronically Signed By: JESUS CAMPUZANO MD Signed Date/Time 06/30/17 1338 Co Signed Electronically By: Co Signed Date/Time: CC: LEOBARDO EMNDEZ MD EMERGENCY DEPARTMENT Observed: 06/11/2017 Status: F [facility] 10:[address] [place] [id number] HEALTH INFORMATION MANAGEMENT EMERGENCY DEPARTMENT : [id number] Signed Patient: ROX BADILLO Acct:[id number] MRUN: [id number] : 1985 Sex: M Loc: ED ADM Date: 06/11/17 Room/Bed: DISC Date: History of Present Illness - General Chief Complaint: Cough Stated Complaint: COUGH,CHEST IS TIGHT,RUNNY NOSE Symptom onset: a couple days HPI: pt states he feels like he has bronchitis. c/o cough and nasal congestion Since 5-6 days. No fever, no chest pain. No pain or swelling of extremities. Denies any travelling history/sick contacts/recent use of antibiotics. No fever/chills/rash. No blood in stool/vomitus or urine. NO LOC/Dizziness/Syncope. No CAR, neck pain, CP, dyspnea or abd pain. No speech/vision problems. No numbness, tingling or paresthesias. No unilateral weakness in face or extremities. Time Seen by Provider: 06/11/17 21:11 Mode of Transport: Ambulatory - Related Data Home Medications Medication Instructions Recorded Confirmed Diltiazem HCl [Cartia Xt] 120 mg PO DAILY 12/13/16 06/11/17 Pantoprazole Sodium [Protonix 20 20 mg PO DAILY 12/13/16 06/11/17 mg Tablet] Ibuprofen 800 mg PO TID PRN #30 tablet 05/04/17 06/11/17 Trazodone HCl [Desyrel] 1 tab PO QHS 05/04/17 06/11/17 Ibuprofen 800 mg PO TID PRN #30 tablet 05/06/17 06/11/17 Sertraline HCl 25 mg PO DAILY 06/11/17 06/11/17 Allergies Allergy/AdvReac Type Severity Reaction Status Date / Time No Known Allergies Allergy Verified 06/11/17 21:10 Review of System - Constitutional Constitutional: Present: Well developed, Well nourished, Non- toxic. Absent: chills, diaphoresis, fever, malaise, weakness, Lethargic - Nose,Throat,Mouth Nose (ROS): Present: no symptoms reported. Absent: pain Throat: Present: no symptoms reported. Absent: pain, swelling, discharge Mouth: Present: bloody discharge. Absent: pain, swelling - Respiratory Respiratory: Present: cough. Absent: sputum, orthopnea, short of breath, stridor, wheezing, hemoptysis, night sweats - CV Cardiology: Present: no symptoms reported. Absent: chest pain, edema - GI Gastrointestinal/Abdominal: Present: no symptoms reported. Absent: abdominal pain, diarrhea, nausea , vomiting - Genitourinary Symptoms: Present: no symptoms reported. Absent: dysuria - Neuro Neurological: Absent: headache, weakness - Muskuloskeletal Musculoskeletal: Present: no symptoms reported. Absent: back pain, joint pain, joint swelling, neck pain - Integumentary Skin: Present: no symptoms reported. Absent: lesions, rash - Allergic/Immunologic Immunological/Allergic: Present: no symptoms reported - Hematologic Hematologic/Lymphatic: Absent: easy bleeding, easy bruising, swollen glands - Endocrine Endocrine: Present: no symptoms reported - Psychiatric Psychiatric: Present: Normal Affect, Normal Mood. 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 - Reproductive Hx Reproductive Disorders: No - Psychological Hx Psychosocial Problems: Yes Other Psychological PMH: PTSD - HEENT Hx Ear, Nose Throat Disorders: No - Cancer Hx Cancer: No - Immunizations Hx Tetanus, Diphtheria Vaccination: Yes - Social History Highest Educational Level: High School Able to Read: Yes Able to Write: Yes Smoking Status: Heavy Smoker (>10 cig/day) Hx Chewing Tobacco Use: No Alcohol Use: Occasionally Any recreational drug use reported?: No Hx Substance Use Treatment: No Feels Threatened In Home Environment: No Feels Threatened In a Relationship: No Hx Physical Abuse: No Hx Emotional Abuse: No Hx Suspected Abuse: No - Family PMH Father Living Status: Still Living - Suicide/Homicide Screen Past 2 weeks, Have you felt down, depressed or hopeless?: No Past 2 Wks, Have you had thoughts killing yourself or others: No In your lifetime, have you attempt kill yourself or others?: No In your lifetime, When did this Happen?: Not Applicable General Exam - General Limitations: Complains of: no limitations Constitutional: Present: Well developed, Well nourished, well hydrated, Non-toxic. Absent: chills, diaphoresis, fever, malaise, weakness, Lethargic - Head Head exam: Present: atraumatic, normocephalic, normal inspection - Eye Eye exam: Present: normal apperance, normal accomodation, EOMI Pupils: Present: PERRL - ENT ENT exam: Present: normal orophraynx, TMs clear w/ good light reflex, mucous membranes moist, No Nasal Discharge, normal external ear exam, Posterior Pharynx Non-erethemetous, no ear drainage. Absent: Posterior Pharynx Erethemetous, Lt hemotympanum, Rt hemotympanum - Expanded ENT Exam Ear exam: Present: normal external inspection Mouth exam: Present: normal external inspection Teeth exam: Present: normal inspection Throat exam: normal inspection - Neck Neck exam: Present: full ROM, Supple. Absent: tenderness, meningismus, Posterior Lymphadenopathy, Anterior Lymphadenopathy, anterior neck swelling, tracheal deviation - Respiratory Respiratory exam: Present: lungs clear equal bilaterally. Absent: respiratory distress, wheezes, rales, rhonchi, stridor, accessory muscle use, Nasal Flaring - Cardiovascular Cardiovascular Exam: Present: regular rate, normal rhythm, normal heart sounds. Absent: murmur, rubs, gallop, clicks - GI/Abdominal GI/Abdominal exam: Present: soft, non tender, normal bowel sounds. Absent: guarding, rebound, rigid , mass, bruit - Extremities Exam Extremities exam: Present: normal inspection, neurovascularly intact, full ROM, normal muscle strength, normal/equal pulses. Absent: calf tenderness, pedal edema, tenderness - Back Exam Back exam: Present: normal inspection, full ROM. Absent: tenderness - Neurological Exam Neurological exam: Present: alert, oriented X3, CN II-XII intact - Expanded Neurological Exam Patient oriented to: Present: person, place, time Speech: Present: fluid speech - Psychiatric Psychiatric exam: Present: normal affect, normal mood - Skin Skin Color: Present: Normal, [place] Skin exam: Present: warm, dry - Expanded Skin Exam Type of lesion: Absent: rash - Vital Signs Vital Signs 06/11/17 20:59 Temperature 98.5 F Pulse Rate [ 85 Pulse Ox Sitting] Respiratory 14 Rate Blood Pressure 147/86 [Sitting] O2 Sat by Pulse 98 Oximetry(%) Course - Reevaluation(s) Reevaluation #1: 06/11/17 21:59 chest x-ray unremarkable per radiologist, Dr. Blue patient started on Zithromax for findings of bronchitis Vital signs are stable. Sats are stable on room air Patient is tolerating PO well, ambulating well. Patient appears well hydrated, nontoxic V.S are stable. Patient is hemodynamically stable. NV intact. Speech and grasp are intact, normal gait. No Vision problems. Nonacute/nonsurgical abdomen Exam, Negative Meningeal signs. Patient appears stable for discharge and outpatient follow up. Warning signs discussed with patient to return back to ER if any worsening of symptoms. Patient states understanding of need for f/up and agrees with management and plan. MDM URI - Lab Data Orders: Labs 06/11/17 21:11 CHEST PA/LAT [DIAG] Stat 06/11/17 21:55 Azithromycin [Zithromax 250 mg Tablet] 500 mg PO ONE ONE - Radiology Data Radiology Report: Radiology report reviewed,negative per Radiologist ED Discharge Summary - Discharge Data Clinical Impression: Bronchitis Condition: Good Disposition: 01 HOME, SELF-CARE Referrals: LEOBARDO MENDEZ MD [Primary Care Provider] - Additional Instructions: Return to ER if symptoms worse/any other problems. Call and f/up with YOUR DOCTOR in 2-3 days for reevaluation of current symptoms/findings, if not better. Call your Doctor today and schedule follow-up appointment. Home Medications: Ambulatory Orders Medication Instructions Recorded Diltiazem HCl [Cartia Xt] 120 mg PO DAILY 12/13/16 Pantoprazole Sodium [Protonix 20 20 mg PO DAILY 12/13/16 mg Tablet] Ibuprofen 800 mg PO TID PRN #30 tablet 05/04/17 Trazodone HCl [Desyrel] 1 tab PO QHS 05/04/17 Ibuprofen 800 mg PO TID PRN #30 tablet 05/06/17 Sertraline HCl 25 mg PO DAILY 06/11/17 Home medications and allergies reviewed: Yes Time Seen by Provider: 06/11/17 21:11 - Consultation Nurses Notes Reviewed and Agreed With?: Yes - Dictation Amendments/Documentation: [employer] Document Only Electronically Generated By: AKILA GOFF MD Generated Date/Time: 06/11/172155 Electronically Signed By: AKILA GOFF MD Signed Date/Time 06/11/17 2200 Co Signed Electronically By: Co Signed Date/Time: CC: LEOBARDO MENDEZ MD EMERGENCY DEPARTMENT Observed: 05/17/2017 Status: F Source: [place] 10:[address] [address] HEALTH INFORMATION MANAGEMENT EMERGENCY DEPARTMENT : [id number] Signed Patient: BADILLOROX Acct:[id number] MRUN: [id number] : 1985 Sex: M Loc: ED ADM Date: 05/06/17 Room/Bed: DISC Date: 05/06/17 ED Dental HPI - General Chief Complaint: Dental Stated Complaint: ABSCESS TOOTH DENTAL PAIN Symptom onset: 2 DAYS HPI: PT COMES IN WITH C/O RIGHT LOWER DENTAL PAIN THAT HAS GOTTEN WORSE OVER THE LAST 2 DAYS. HE STATES THAT HE IS TAKING HIS ANTIBIOTIC BUT IT IS NOT HELPING Time Seen by Provider: 05/06/17 12:22 Nurses Notes Reviewed and Agreed With?: Yes Source: Patient Mode of Transport: Ambulatory - History of Present Illness Initial Comments: 32-year-old male presents to the right lower dental pain ?2 days. States seen here 2 days ago for the same. States given antibiotics. States no other concerns at this time. 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 - Related Data Home Medications: Home Medications Medication Instructions Recorded Confirmed Diltiazem HCl [Cartia Xt] 120 mg PO DAILY 12/13/16 05/06/17 Pantoprazole Sodium [Protonix 20 20 mg PO DAILY 12/13/16 05/06/17 mg Tablet] Ibuprofen 800 mg PO TID PRN #30 tablet 05/04/17 05/06/17 Penicillin V Potassium 500 mg PO TID #30 tablet 05/04/17 05/06/17 Trazodone HCl [Desyrel] 1 tab PO QHS 05/04/17 05/06/17 Allergies/Adverse Reactions: Allergies Allergy/AdvReac Type Severity Reaction Status Date / Time No Known Allergies Allergy Verified 05/04/17 17:37 Home medications and allergies reviewed: Yes Review of System - Constitutional Constitutional: Present: Well developed, Well nourished, Non-toxic - Nose,Throat,Mouth Nose (ROS): Absent: pain Throat: Absent: pain, swelling, discharge Mouth: Present: pain. Absent: swelling - Respiratory Respiratory: Absent: cough, short of breath, wheezing - CV Cardiology: Absent: chest pain, edema - GI Gastrointestinal/Abdominal: Absent: abdominal pain, diarrhea, nausea, vomiting - Genitourinary Symptoms: Absent: dysuria - Neuro Neurological: Absent: headache, weakness - Muskuloskeletal Musculoskeletal: Absent: back pain, joint pain, joint swelling - Integumentary Skin: Absent: lesions, rash - Allergic/Immunologic Immunological/Allergic: Present: no symptoms reported - Hematologic Hematologic/Lymphatic: Absent: easy bleeding, easy bruising, swollen glands - Endocrine Endocrine: Present: no symptoms reported - Psychiatric Psychiatric: Present: Normal Affect, Normal Mood. 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 - Reproductive Hx Reproductive Disorders: No - Psychological Hx Psychosocial Problems: Yes Other Psychological PMH: PTSD - HEENT Hx Ear, Nose Throat Disorders: No - Cancer Hx Cancer: No - Immunizations Hx Tetanus, Diphtheria Vaccination: Yes - Social History Highest Educational Level: High School Able to Read: Yes Able to Write: Yes Smoking Status: Heavy Smoker (>10 cig/day) Hx Chewing Tobacco Use: No Hx Substance Use Treatment: No Hx Physical Abuse: No Hx Emotional Abuse: No Hx Suspected Abuse: No - Family PMH Father Living Status: Still Living General Exam - General Limitations: Complains of: no limitations Constitutional: Present: Well developed, Well nourished, well hydrated, Non-toxic - Head Head exam: Present: atraumatic, normocephalic, normal inspection - Eye Eye exam: Present: normal apperance, normal accomodation, EOMI Pupils: Present: PERRL - ENT ENT exam: Present: normal orophraynx, mucous membranes moist, TMs clear w/ good light reflex, normal external ear exam, No Nasal Discharge, Posterior Pharynx Non-erethemetous - Expanded ENT Exam Ear exam: Present: normal external inspection Nose: Absent: tender, drainage Mouth exam: Present: normal external inspection Teeth exam: Present: dental caries (t/o), fractured tooth # (t/o), dental tenderness # (right lower) . Absent: gingival enlargement (no abscess formation) Throat exam: normal inspection, uvula midline - Neck Neck exam: Present: full ROM, Supple. Absent: tenderness, meningismus, Posterior Lymphadenopathy, Anterior Lymphadenopathy - Respiratory Respiratory exam: Present: lungs clear equal bilaterally. Absent: respiratory distress, wheezes, rales, rhonchi, accessory muscle use - Cardiovascular Cardiovascular Exam: Present: regular rate, normal rhythm, normal heart sounds. Absent: murmur, rubs, gallop, clicks - GI/Abdominal GI/Abdominal exam: Present: soft, non tender, normal bowel sounds. Absent: guarding, rebound, rigid , mass, bruit - Extremities Exam Extremities exam: Present: normal inspection, full ROM, neurovascularly intact - Back Exam Back exam: Present: normal inspection, full ROM. Absent: tenderness - Neurological Exam Neurological exam: Present: alert, oriented X3, CN II-XII intact - Expanded Neurological Exam Patient oriented to: Present: person, place, time Speech: Present: fluid speech - Psychiatric Psychiatric exam: Present: normal affect, normal mood - Skin Skin Color: Present: Normal, [place] Skin exam: Present: warm, dry - Expanded Skin Exam Type of lesion: Absent: rash - Vital Signs Vital Signs 05/06/17 12:16 Temperature 98.3 F Pulse Rate [ 64 Pulse Ox] Respiratory 18 Rate Blood Pressure 165/103 H [Right Arm] O2 Sat by Pulse 97 Oximetry(%) Dental MDM - Differential Diagnosis Dental DD: Considered: Alveolar fracture, Tooth avulsion, Tooth eruption, Tooth fracture, subluxation, Other, Alveolar osteritis, ANUG, Facial cellulitis, Periapical abscess, Periodontal abscess, Post-extraction bleeding, Pulpitis, Trigeminal neuralgia ED Discharge Summary - Discharge Data Clinical Impression: Pain due to dental caries Condition: Good Disposition: 01 HOME, SELF-CARE Admit is Medically Necessary, Anticipated Stay >2 Midnights:: No Referrals: LEOBARDO MENDEZ MD [Primary Care Provider] - Additional Instructions: FOLLOW UP WITH YOUR PCP OR THE BACK UP PHYSICIAN LISTED ON HOME GOING INSTRUCTIONS IF NOT FEELING BETTER IN 3 DAYS RETURN TO THE ED IF SYMPTOMS WORSEN OR ANY OTHER CONCERNS At least one of your blood pressure readings in the Emergency Department visit today were above 120 /80. You need to follow up with your Primary Care Physician/Family Doctor within the next week about your blood pressure. SWISH WITH FLUORIDE MOUTHWASH AND WATER THREE TIMES A DAY FOLLOW UP WITH A DENTIST OF YOUR CHOICE OR YOU MAY CALL AYAKA ARAGON, DDS [address], [place] [phone] DASH LEAL DDS [address], [place] [phone] [place] [address] The [facility] Care [facility] at [facility] [employer] [facility] is a walk-in service available to adult patients 18 and over. Emergency care is provided by third and fourth year dental students under the supervision of [facility] faculty dentists. The Clinic is for adult patients, 18 and over, who are experiencing: [id number] pain that is not relieved by taking pain medications oral bleeding facial/oral swelling To become a patient of the [employer] [facility] [employer], call the Information Desk at [phone] (choose option 2) to set up an evaluation appointment. Emergency Patients younger than 18 should seek care at [facility] (walk-in hours are 9:00a.m. -11:00 a.m. and 1:00p.m.-3:00 p.m. weekdays). for more information. Hours of Operation Tuesday - : 8:30 a.m. - 1:30 p.m. Limited to 30 patients Tuesday: 8:30 a.m. - 11:30 a.m. Limited to 20 patients OARRS Report Reviewed: No Home Medications: Ambulatory Orders Medication Instructions Recorded Diltiazem HCl [Cartia Xt] 120 mg PO DAILY 12/13/16 Pantoprazole Sodium [Protonix 20 20 mg PO DAILY 12/13/16 mg Tablet] Ibuprofen 800 mg PO TID PRN #30 tablet 05/04/17 Penicillin V Potassium 500 mg PO TID #30 tablet 03/21/18 Trazodone HCl [Desyrel] 1 tab PO QHS 05/04/17 Home medications and allergies reviewed: Yes Time Seen by Provider: 05/06/17 12:22 Patient seen by Midlevel: Independently - Consultation I saw and examined the patient: Yes Nurses Notes Reviewed and Agreed With?: Yes - Dictation Amendments/Documentation: [employer] Document Only Electronically Generated By: THOMAS FOWLER PA-C Generated Date/Time: 05/06/17 1231 Electronically Signed By: THOMAS FOWLER PA-C Signed Date/Time 05/06/17 1236 Co Signed Electronically By: <Electronically signed by KAYE FISCHER DO> <Electronically signed by KAYE FISCHER DO> Co Signed Date/Time: 05/10/179 05/10/1738 CC: LEOBARDO MENDEZ MD EMERGENCY DEPARTMENT Observed: 05/17/2017 Status: F Source: [place] 10:[address] [place] [id number] HEALTH INFORMATION MANAGEMENT EMERGENCY DEPARTMENT : [id number] Signed Patient: ROX BADILLO Acct:[id number] MRUN: [id number] : 1985 Sex: M Loc: ED ADM Date: 05/04/17 Room/Bed: DISC Date: 05/04/17 ED Dental HPI - General Chief Complaint: Dental Stated Complaint: ABSCESSED TOOTH Symptom onset: LAST NIGHT HPI: PT CO RIGHT SIEDED DENTAL PAIN, BOTH TOP AND BOTTOM THAT STARTED LAST NIGHT Time Seen by Provider: 05/04/17 17:33 Nurses Notes Reviewed and Agreed With?: Yes Source: Patient Mode of Transport: Ambulatory - History of Present Illness Initial Comments: 32-year-old male presents with right lower dental pain ?2 days. He states history of dental pain in the past. States he does have a dentist. He denies fevers or chills. States no difficulty breathing or swallowing. Denies other concerns at this time. 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 - Related Data Home Medications: Home Medications Medication Instructions Recorded Confirmed Diltiazem HCl [Cartia Xt] 120 mg PO DAILY 12/13/16 05/04/17 Pantoprazole Sodium [Protonix 20 20 mg PO DAILY 12/13/16 05/04/17 mg Tablet] Ibuprofen 800 mg PO TID PRN #30 tablet 05/04/17 Penicillin V Potassium 500 mg PO TID #30 tablet 05/04/17 Trazodone HCl [Desyrel] 1 tab PO QHS 05/04/17 05/04/17 Allergies/Adverse Reactions: Allergies Allergy/AdvReac Type Severity Reaction Status Date / Time No Known Allergies Allergy Verified 05/04/17 17:37 Home medications and allergies reviewed: Yes Review of System - Constitutional Constitutional: Present: Well developed, Well nourished, Non-toxic - Nose,Throat,Mouth Nose (ROS): Absent: pain Throat: Absent: pain, swelling, discharge Mouth: Present: pain. Absent: swelling - Respiratory Respiratory: Absent: cough, short of breath, wheezing - CV Cardiology: Absent: chest pain, edema - GI Gastrointestinal/Abdominal: Absent: abdominal pain, diarrhea, nausea, vomiting - Genitourinary Symptoms: Absent: dysuria - Neuro Neurological: Absent: headache, weakness - Muskuloskeletal Musculoskeletal: Absent: back pain, joint pain, joint swelling - Integumentary Skin: Absent: lesions, rash - Allergic/Immunologic Immunological/Allergic: Present: no symptoms reported - Hematologic Hematologic/Lymphatic: Absent: easy bleeding, easy bruising, swollen glands - Endocrine Endocrine: Present: no symptoms reported - Psychiatric Psychiatric: Present: Normal Affect, Normal Mood. 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 - Reproductive Hx Reproductive Disorders: No - Psychological Hx Psychosocial Problems: Yes Other Psychological PMH: PTSD - HEENT Hx Ear, Nose Throat Disorders: No - Cancer Hx Cancer: No - Immunizations Hx Tetanus, Diphtheria Vaccination: Yes - Social History Highest Educational Level: High School Able to Read: Yes Able to Write: Yes Smoking Status: Heavy Smoker (>10 cig/day) Hx Chewing Tobacco Use: No Hx Substance Use Treatment: No Hx Physical Abuse: No Hx Emotional Abuse: No Hx Suspected Abuse: No - Family PMH Father Living Status: Still Living General Exam - General Limitations: Complains of: no limitations Constitutional: Present: Well developed, Well nourished, well hydrated, Non-toxic - Head Head exam: Present: atraumatic, normocephalic, normal inspection - Eye Eye exam: Present: normal apperance, normal accomodation, EOMI Pupils: Present: PERRL - ENT ENT exam: Present: normal orophraynx, TMs clear w/ good light reflex, mucous membranes moist, No Nasal Discharge, normal external ear exam, Posterior Pharynx Non-erethemetous - Expanded ENT Exam Ear exam: Present: normal external inspection Mouth exam: Present: normal external inspection Teeth exam: Present: normal inspection, dental caries (diffuse), other (right lower dental pain with mild gum inflammation and erythema, no abscess formation). Absent: fractured tooth #, dental tenderness #, gingival enlargement Throat exam: normal inspection - Neck Neck exam: Present: full ROM, Supple. Absent: tenderness, meningismus, thyromegaly, Posterior Lymphadenopathy, Anterior Lymphadenopathy, midline deformity, anterior neck swelling, carotid bruit , tracheal deviation - Respiratory Respiratory exam: Present: lungs clear equal bilaterally. Absent: respiratory distress, wheezes, rales, rhonchi, accessory muscle use - Cardiovascular Cardiovascular Exam: Present: regular rate, normal rhythm, normal heart sounds. Absent: murmur, rubs, gallop, clicks - GI/Abdominal GI/Abdominal exam: Present: soft, non tender, normal bowel sounds. Absent: guarding, rebound, rigid , mass, bruit - Extremities Exam Extremities exam: Present: normal inspection, full ROM, neurovascularly intact - Back Exam Back exam: Present: normal inspection, full ROM. Absent: tenderness - Neurological Exam Neurological exam: Present: alert, oriented X3, CN II-XII intact - Expanded Neurological Exam Patient oriented to: Present: person, place, time Speech: Present: fluid speech - Psychiatric Psychiatric exam: Present: normal affect, normal mood - Skin Skin Color: Present: Normal, [place] Skin exam: Present: warm, dry - Expanded Skin Exam Type of lesion: Absent: rash - Vital Signs Vital Signs 05/04/17 17:33 Temperature 98.9 F Pulse Rate [ 86 Pulse Ox] Respiratory 18 Rate Blood Pressure 160/96 H [Left Arm] Dental MDM - Lab Data Orders: Ibuprofen 800 mg PO TID PRN #30 tablet 05/04/17 [Rx] Penicillin V Potassium 500 mg PO TID #30 tablet 05/04/17 [Rx] - Differential Diagnosis Dental DD: Considered: Alveolar fracture, Tooth avulsion, Tooth eruption, Tooth fracture, subluxation, Other, Alveolar osteritis, ANUG, Facial cellulitis, Periapical abscess, Periodontal abscess, Post-extraction bleeding, Pulpitis, Trigeminal neuralgia ED Discharge Summary - Discharge Data Clinical Impression: left dental pain, Pain, dental, Pain due to dental caries Condition: Good Disposition: 01 HOME, SELF-CARE Admit is Medically Necessary, Anticipated Stay >2 Midnights:: No Referrals: LEOBARDO MENDEZ MD [Primary Care Provider] - Additional Instructions: FOLLOW UP WITH YOUR PCP OR THE BACK UP PHYSICIAN LISTED ON HOME GOING INSTRUCTIONS IF NOT FEELING BETTER IN 3 DAYS RETURN TO THE ED IF SYMPTOMS WORSEN OR ANY OTHER CONCERNS At least one of your blood pressure readings in the Emergency Department visit today were above 120 /80. You need to follow up with your Primary Care Physician/Family Doctor within the next week about your blood pressure. SWISH WITH FLUORIDE MOUTHWASH AND WATER THREE TIMES A DAY FOLLOW UP WITH A DENTIST OF YOUR CHOICE OR YOU MAY CALL AYAKA ARAGON DDS [address], [place] [phone] DASH LEAL DDS [address], [place] [phone] [facility] [place] [address] The Dental Emergency Care Clinic at [facility] [employer] [facility] [employer] is a walk-in service available to adult patients 18 and over. Emergency care is provided by third and fourth year dental students under the supervision of [facility] faculty dentists. The Clinic is for adult patients, 18 and over, who are experiencing: [id number] pain that is not relieved by taking pain medications oral bleeding facial/oral swelling To become a patient of the [facility], call the Information Desk at [phone] (choose option 2) to set up an evaluation appointment. Emergency Patients younger than 18 should seek care at [facility] (walk-in hours are 9:00a.m. -11:00 a.m. and 1:00p.m.-3:00 p.m. ). for more information. Hours of Operation Tuesday - : 8:30 a.m. - 1:30 p.m. Limited to 30 patients Tuesday: 8:30 a.m. - 11:30 a.m. Limited to 20 patients OARRS Report Reviewed: No Home Medications: Ambulatory Orders Medication Instructions Recorded Diltiazem HCl [Cartia Xt] 120 mg PO DAILY 12/13/16 Pantoprazole Sodium [Protonix 20 20 mg PO DAILY 12/13/16 mg Tablet] Ibuprofen 800 mg PO TID PRN #30 tablet 05/04/17 Penicillin V Potassium 500 mg PO TID #30 tablet 05/04/17 Trazodone HCl [Desyrel] 1 tab PO QHS 05/04/17 Home medications and allergies reviewed: Yes Time Seen by Provider: 05/04/17 17:33 Patient seen by Midlevel: Independently - Consultation I saw and examined the patient: Yes Nurses Notes Reviewed and Agreed With?: Yes - Dictation Amendments/Documentation: [employer] Document Only Electronically Generated By: THOMAS FOWLER PA-C Generated Date/Time: 05/04/17 175 Electronically Signed By: THOMAS FOWLER PA-C Signed Date/Time 05/04/171803 Co Signed Electronically By: <Electronically signed by KAYE FISCHER DO> <Electronically signed by KAYE FISCHER DO> Co Signed Date/Time: 05/10/178 05/10/1737 CC: LEOBARDO MENDEZ MD EMERGENCY DEPARTMENT Observed: 05/04/2017 Status: F Source: [facility] 1:03 AM [facility] [address] [place] [address] HEALTH INFORMATION MANAGEMENT EMERGENCY DEPARTMENT : [id number] Signed Patient: ROX BADILLO Acct:[id number] MRUN: [id number] : 1985 Sex: M Loc: ED ADM Date: 05/03/17 Room/Bed: DISC Date: History of Present Illness - General Chief complaint: Other Stated complaint: PASSED OUT Symptom onset: THIS EVENING HPI: PT STATES THAT HE WAS LAYING IN BED TAKING A DRINK OF POP AND ALL OF A SUDDEN I LOST ALL CONTROL OF MY MUSCLES AND I CLENCHED MY POP AND IT WENT EVERYWHERE. STATES THAT SIMILAR EVENTS HAVE HAPPENED IN THE PAST WHERE HE WILL BE WALKING AND JUST SPACE OUT, PEOPLE HAVE TO TALK TO ME TO GET ME TO COME TO. Time Seen by Provider: 05/03/17 23:40 Nurses Notes Reviewed and Agreed With?: Yes Source: Patient Mode of Transport: Ambulatory - History of Present Illness Initial comments: Patient presents after a syncopal episode. Patient was laying on the couch when he clenched his fists and spilled his drink all over the wall. He states he blacked out. He remembers this happening. Witnesses say that there was no seizure-like activity. Patient currently feels weak all over. He does not feel fatigued or tired. He states he has had episodes like this in the past for he has spaced out and friends have had to shake him in order to wake him. He does admit that he has been sleep deprived and has not been sleeping well due to his PTSD. Denies any recent illnesses. He has been eating and drinking normally. - Related Data Home Medications Medication Instructions Recorded Confirmed Diltiazem HCl [Cartia Xt] 120 mg PO DAILY 12/13/16 05/03/17 Pantoprazole Sodium [Protonix 20 20 mg PO DAILY 12/13/16 05/03/17 mg Tablet] Allergies Allergy/AdvReac Type Severity Reaction Status Date / Time No Known Allergies Allergy Verified 05/03/17 23:45 Review of System - Constitutional Constitutional: Present: Well developed, Well nourished, Non-toxic - Nose,Throat,Mouth Nose (ROS): Absent: pain Throat: Absent: pain, swelling, discharge Mouth: Absent: pain, swelling - Respiratory Respiratory: Absent: cough, short of breath, wheezing - CV Cardiology: Absent: chest pain, edema - GI Gastrointestinal/Abdominal: Absent: abdominal pain, diarrhea, nausea, vomiting - Genitourinary Symptoms: Absent: dysuria - Neuro Neurological: Present: see HPI - Muskuloskeletal Musculoskeletal: Absent: back pain, joint pain, joint swelling - Integumentary Skin: Absent: lesions, rash - Allergic/Immunologic Immunological/Allergic: Present: no symptoms reported - Hematologic Hematologic/Lymphatic: Absent: easy bleeding, easy bruising, swollen glands - Endocrine Endocrine: Present: no symptoms reported - Psychiatric Psychiatric: Present: Normal Affect, Normal Mood. 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 - Reproductive Hx Reproductive Disorders: No - Psychological Hx Psychosocial Problems: Yes Other Psychological PMH: PTSD - HEENT Hx Ear, Nose Throat Disorders: No - Cancer Hx Cancer: No - Immunizations Hx Tetanus, Diphtheria Vaccination: Yes - Social History Highest Educational Level: High School Able to Read: Yes Able to Write: Yes Smoking Status: Heavy Smoker (>10 cig/day) Hx Chewing Tobacco Use: No Alcohol Use: Unknown Any recreational drug use reported?: No Hx Substance Use Treatment: No Feels Threatened In Home Environment: No Feels Threatened In a Relationship: No Hx Physical Abuse: No Hx Emotional Abuse: No Hx Suspected Abuse: No - Family PMH Father Living Status: Still Living General Exam - General Limitations: Complains of: no limitations Constitutional: Present: Well developed, Well nourished, well hydrated, Non-toxic - Head Head exam: Present: atraumatic, normocephalic, normal inspection - Eye Eye exam: Present: normal apperance, normal accomodation, EOMI Pupils: Present: PERRL - ENT ENT exam: Present: normal orophraynx, mucous membranes moist, No Nasal Discharge, normal external ear exam, Posterior Pharynx Non-erethemetous - Neck Neck exam: Present: full ROM, Supple. Absent: tenderness, meningismus, Posterior Lymphadenopathy, Anterior Lymphadenopathy - Respiratory Respiratory exam: Present: lungs clear equal bilaterally. Absent: respiratory distress, wheezes, rales, rhonchi, accessory muscle use - Cardiovascular Cardiovascular Exam: Present: regular rate, normal rhythm, normal heart sounds. Absent: murmur, rubs, gallop, clicks - GI/Abdominal GI/Abdominal exam: Present: soft, non tender, normal bowel sounds. Absent: guarding, rebound, rigid , mass, bruit - Extremities Exam Extremities exam: Present: normal inspection, full ROM, neurovascularly intact - Neurological Exam Neurological exam: Present: alert, oriented X3, CN II-XII intact - Skin Skin Color: Present: Normal, [place] Skin exam: Present: warm, dry - Vital Signs Vital Signs 05/03/17 23:38 Temperature 97.9 F Pulse Rate [ 62 Pulse Ox] Respiratory 16 Rate Blood Pressure 144/85 [Right Arm Sitting] O2 Sat by Pulse 98 Oximetry(%) Medical Desicion Making - Lab Data Result diagrams: 05/04/17 00:05 05/04/17 00:05 Lab Results 05/04/17 05/04/17 Range/Units 00:05 00:05 WBC 8.7 (3.6-10.8) K/uL RBC 4.94 (4.13-5.69) M/uL Hgb 14.9 (12.4-17.3) g/dL Hct 43.9 (36.7-50.6) % MCV 88.9 (80.0-94.0) fL MCH 30.1 (27.0-31.0) pg MCHC 33.8 (33.0-37.0) g/dL RDW 13.2 (11.5-14.5) % Plt Count 225 (148-402) K/uL MPV 8.4 (7.4-10.4) fL Neut % 53.6 (43.0-65.0) % Lymph % 29.6 (17.0-45.5) % Nance % 12.9 H (5.5-11.7) % Eos % 3.5 H (0.9-2.9) % Baso % 0.4 (0.2-1.0) % Absolute Neuts (auto) 4.6 (2.2-4.8) K/uL Absolute Lymphs (auto) 2.6 (1.3-2.9) K/uL Absolute Monos (auto) 1.1 H (0.3-0.8) K/uL Absolute Eos (auto) 0.3 H (0.0-0.2) K/uL Absolute Basos (auto) 0 (0.0-0.1) K/uL Nucleated RBC % 0 % Nucleated RBCs # 0 K/uL Monocytosis % Present A Sodium 149 H (132-145) mmol/L Potassium 3.8 (3.3-5.1) mmol/L Chloride 111 H (94-110) mmol/L Total Carbon Dioxide 30 (21-34) mmol/L Anion Gap 11.8 (8.0-16.0) mmol/L BUN 17.7 (3.2-26.9) mg/dL Creatinine 0.97 (0.50-1.17) mg/dL Est GFR (MDRD) Af Amer > 60 (>60) Est GFR (MDRD) Non-Af > 60 (>60) BUN/Creatinine Ratio 18 (6-20) Glucose 90 (65-100) mg/dL Calcium 8.4 (8.2-10.0) mg/dL Total Bilirubin 0.27 (0.00-0.99) mg/dL AST 17 (3-39) U/L ALT 28 (13-66) U/L Alkaline Phosphatase 50 L (54-112) U/L Total Protein 6.0 L (6.1-8.2) g/dL Albumin 3.7 (3.4-5.0) g/dL Globulin 2.4 (1.5-4.5) g/dL Albumin/Globulin Ratio 1.5 (1.1-2.5) Orders: Labs 05/03/17 23:45 12-Lead per nursing [RC] STAT EKG [CAR] Stat CBC w/Auto Differential [HEM] Stat Comprehensive Metabolic Panel [CHM] 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 No ST changes. QTc 412 - Medical Decision Making Patient's EKG was normal sinus rhythm with no changes. Labs are unremarkable except for a sodium of 149 and chloride of 111. Don't feel that this is the cause of his symptoms. Patient will increase his hydration and try to get more sleep at home. He was given naproxen for a painful tooth. He will follow up with his primary care physician. ED Discharge Summary - Discharge Data Clinical Impression: Syncope Condition: Good Disposition: HOME, SELF-CARE Referrals: LEOBARDO MENDEZ MD [Primary Care Provider] - Home Medications: Ambulatory Orders Medication Instructions Recorded Diltiazem HCl [Cartia Xt] 120 mg PO DAILY 12/13/16 Pantoprazole Sodium [Protonix 20 20 mg PO DAILY 12/13/16 mg Tablet] Time Seen by Provider: 05/03/17 23:40 - Dictation Amendments/Documentation: Ripple TV Document Only Electronically Generated By: JESUS CAMPUZANO MD Generated Date/Time: 05/03/17 7686 Electronically Signed By: JESUS CAMPUZANO MD Signed Date/Time 05/04/17 0102 Co Signed Electronically By: Co Signed Date/Time: CC: LEOBARDO MENDEZ MD CBC W/AUTO DIFFERENTIAL Collected: 05/04/2017 Status: F Source: [place] 12:05 AM [facility] REPOSITORY TYPE CODE TESTS RESULT OUT OF RANGE REFERENCE UNITS LAB WBCIR(TWAN 3.6-10.8 K/uL NC) WBC 8.7 LAB RBC(LOINC 4.13-5.69 M/uL ) RBC 4.94 LAB HGB(LOINC 12.4-17.3 g/dL ) HGB 14.9 LAB HCT(LOINC 36.7-50.6 % ) HCT 43.9 LAB MCV(LOINC 80.0-94.0 fL ) MCV 88.9 LAB MCH(LOINC 27.0-31.0 pg ) MCH 30.1 LAB MCHC(LOIN 33.0-37.0 g/dL C) MCHC 33.8 LAB RDW(LOINC 11.5-14.5 % ) RDW 13.2 LAB PLTI(LOIN 148-402 K/uL C) Platelet Count 225 LAB MPV(LOINC 7.4-10.4 fL ) MPV 8.4 LAB SEGR(LOIN 43.0-65.0 % C) Neutrophils % 53.6 LAB LYMPR(TWAN 17.0-45.5 % NC) Lymphocytes % 29.6 LAB MONOR(TWAN 5.5-11.7 % NC) High Monocytes % 12.9 LAB EOSR(LOIN 0.9-2.9 % C) High Eosinophils % 3.5 LAB BASOR(TWAN 0.2-1.0 % NC) Basophils % 0.4 LAB NRBC%(TWAN % NC) NRBC % 0.0 LAB ASEGR(TWAN 2.2-4.8 K/uL NC) Neutrophils Abs. # 4.6 LAB ALYMR(TWAN 1.3-2.9 K/uL NC) Lymphocytes Abs. # 2.6 LAB AMONR(TWAN 0.3-0.8 K/uL NC) High Monocytes Abs. # 1.1 LAB AEOSR(TWAN 0.0-0.2 K/uL NC) High Eosinophils Abs. # 0.3 LAB ABASR(TWAN 0.0-0.1 K/uL NC) Basophils Abs. # 0.0 LAB NRBC#(TWAN K/uL NC) NRBC Abs. # 0.0 LAB MOCT%(TWAN NC) Monocytosis % Abnormal PRESENT LAB LYPN%(TWAN NC) Lymphopenia % INSPECTOR RUBBER STAMP DIE LAB LYPN#(TWAN NC) Lymphopenia # INSPECTOR RUBBER STAMP DIE LAB LYCT%(TWAN NC) Lymphocytosis % INSPECTOR RUBBER STAMP DIE LAB NEPN%(TWAN NC) Neutropenia % INSPECTOR RUBBER STAMP DIE LAB NEPN#(TWAN NC) Neutropenia # INSPECTOR RUBBER STAMP DIE LAB EOPH%(TWAN NC) Eosinophilia % INSPECTOR RUBBER STAMP DIE LAB ANEM(LOIN C) Anemia INSPECTOR RUBBER STAMP DIE LAB PNCP(LOIN C) Pancytopenia INSPECTOR RUBBER STAMP DIE LAB SMLPT(TWAN NC) Small Platelets INSPECTOR RUBBER STAMP DIE LAB ERCT(LOIN C) Erythocytosis INSPECTOR RUBBER STAMP DIE LAB MACT(LOIN C) Macrocytosis INSPECTOR RUBBER STAMP DIE LAB BAPH#(TWAN NC) Bosophillia # INSPECTOR RUBBER STAMP DIE LAB BAPH%(TWAN NC) Basophillia % INSPECTOR RUBBER STAMP DIE LAB LUCT(LOIN C) Leukocytosis INSPECTOR RUBBER STAMP DIE LAB NEPH%(TWAN NC) Neutrophilia % INSPECTOR RUBBER STAMP DIE LAB NEPH#(TWAN NC) Neutrophilla # INSPECTOR RUBBER STAMP DIE LAB ANCT(LOIN C) Anisocytosis INSPECTOR RUBBER STAMP DIE LAB MICT(LOIN C) Microcytosis INSPECTOR RUBBER STAMP DIE LAB HY(LOINC) Hypochromia INSPECTOR RUBBER STAMP DIE LAB PKCT(LOIN C) Poikilocytosis INSPECTOR RUBBER STAMP DIE LAB THCT(LOIN C) Thrombocytosis INSPECTOR RUBBER STAMP DIE LAB THCO(LOIN C) Thrombocytopenia INSPECTOR RUBBER STAMP DIE LAB THCP(LOIN C) Thrombocytopenia. INSPECTOR RUBBER STAMP DIE LAB LRGPT(TWAN NC) Large Platelets INSPECTOR RUBBER STAMP DIE LAB LUPN(LOIN C) Leukopenia INSPECTOR RUBBER STAMP DIE LAB LYCT#(TWAN NC) Lymphocytosis # INSPECTOR RUBBER STAMP DIE LAB EOPH#(TWAN NC) Eosinophilia # INSPECTOR RUBBER STAMP DIE Performed By: #### CBC #### [address] [address] COMPREHENSIVE METABOLIC Collected: 05/04/2017 Status: F Source: [place] PANEL 12:05 AM [facility] REPOSITORY TYPE CODE TESTS RESULT OUT OF REFERENCE UNITS RANGE LAB NA(LOINC) 132-145 mmol/L Sodium High 149 LAB K(LOINC) 3.3-5.1 mmol/L Potassium 3.8 LAB CLI(LOINC) 94-110 mmol/L Chloride High 111 LAB TCO2(LOINC 21-34 mmol/L ) Total Co2 30 LAB GLU(LOINC) 65-100 mg/dL Glucose 90 LAB BUN(LOINC) 3.2-26.9 mg/dL BUN 17.7 LAB CREAT(LOIN 0.50-1.17 mg/dL C) Creatinine 0.97 LAB CA(LOINC) 8.2-10.0 mg/dL Calcium 8.4 LAB ALB(LOINC) 3.4-5.0 g/dL Albumin 3.7 LAB TP(LOINC) 6.1-8.2 g/dL Low Protein 6.0 LAB TBIL(LOINC 0.00-0.99 mg/dL ) Total Bilirubin 0.27 LAB ALP(LOINC) 54-112 U/L Low Alkaline Phosphatase 50 LAB ALT(LOINC) 13-66 U/L ALT (SGPT) 28 LAB AST(LOINC) 3-39 U/L AST (SGOT) 17 LAB AGAP(LOINC 8.0-16.0 mmol/L ) Anion Gap 11.8 LAB B-C(LOINC) 6-20 BUN/CREAT Ratio 18 LAB A-G(LOINC) 1.1-2.5 A/G Ratio 1.5 LAB GLOB(LOINC 1.5-4.5 g/dL ) Globulin 2.4 LAB EGFR4(LOIN >60 C) EGFR Other Races >60 LAB EGFR5(LOIN >60 C) EGFR >60 Result Comment: Chronic Kidney Disease less than 60 mL/min/1.73 m2 Kidney Failure less than 15 mL/min/1.73 m2 Average estimated GFR by age: 30-39 years 107 mL/min/1.73 m2 Performed By: #### CMP #### [address] [address] EMERGENCY DEPARTMENT Observed: 03/13/2017 Status: F Source: [place] 6:[address] [address] HEALTH INFORMATION MANAGEMENT EMERGENCY DEPARTMENT : [id number] Signed Patient: ROX BADILLO Acct:[id number] MRUN: [id number] : 1985 Sex: M Loc: ED ADM Date: 03/13/17 Room/Bed: DISC Date: 03/13/17 ED Dental HPI - General Chief Complaint: Dental Stated Complaint: TOOTH ACHE Time Seen by Provider: 03/13/17 17:00 Nurses Notes Reviewed and Agreed With?: Yes Source: Patient Mode of Transport: Ambulatory - History of Present Illness Initial Comments: 32-year-old male presents today with right lower dental pain. He states ongoing for months. He does have an appointment for May 22. States no difficulty breathing or swallowing. Denies other concerns at this time. 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 - Related Data Home Medications: Home Medications Medication Instructions Recorded Confirmed Diltiazem HCl [Cartia Xt] 120 mg PO DAILY 12/13/16 02/08/17 Pantoprazole Sodium [Protonix 20 20 mg PO DAILY 12/13/16 02/08/17 mg Tablet] Allergies/Adverse Reactions: Allergies Allergy/AdvReac Type Severity Reaction Status Date / Time No Known Allergies Allergy Verified 02/08/17 16:30 Home medications and allergies reviewed: Yes Review of System - Constitutional Constitutional: Present: Well developed, Well nourished, Non-toxic - Nose,Throat,Mouth Nose (ROS): Absent: congestion, pain, bloody discharge, clear discharge, purulent discharge Throat: Absent: pain, swelling, discharge Mouth: Present: pain. Absent: swelling - Respiratory Respiratory: Absent: cough, short of breath, wheezing - CV Cardiology: Absent: chest pain, edema - GI Gastrointestinal/Abdominal: Absent: abdominal pain, diarrhea, nausea, vomiting - Genitourinary Symptoms: Absent: dysuria - Neuro Neurological: Absent: headache, weakness - Muskuloskeletal Musculoskeletal: Absent: back pain, joint pain, joint swelling - Integumentary Skin: Absent: lesions, rash - Allergic/Immunologic Immunological/Allergic: Present: no symptoms reported - Hematologic Hematologic/Lymphatic: Absent: easy bleeding, easy bruising, swollen glands - Endocrine Endocrine: Present: no symptoms reported - Psychiatric Psychiatric: Present: Normal Affect, Normal Mood. 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 - Reproductive Hx Reproductive Disorders: No - Psychological Hx Psychosocial Problems: Yes Other Psychological PMH: PTSD - HEENT Hx Ear, Nose Throat Disorders: No - Cancer Hx Cancer: No - Immunizations Hx Tetanus, Diphtheria Vaccination: Yes - Social History Highest Educational Level: High School Able to Read: Yes Able to Write: Yes Smoking Status: Heavy Smoker (>10 cig/day) Hx Chewing Tobacco Use: No Hx Substance Use Treatment: No Hx Physical Abuse: No Hx Emotional Abuse: No Hx Suspected Abuse: No - Family PMH Father Living Status: Still Living General Exam - General Limitations: Complains of: no limitations Constitutional: Present: Well developed, Well nourished, well hydrated, Non-toxic - Head Head exam: Present: atraumatic, normocephalic, normal inspection - Eye Eye exam: Present: normal apperance, normal accomodation, EOMI Pupils: Present: PERRL - ENT ENT exam: Present: normal orophraynx, TMs clear w/ good light reflex, mucous membranes moist, No Nasal Discharge, normal external ear exam, Posterior Pharynx Non-erethemetous - Expanded ENT Exam Ear exam: Present: normal external inspection Nose: Absent: tender Mouth exam: Present: normal external inspection Teeth exam: Present: dental caries (t/o), dental tenderness #, gingival enlargement. Absent: fractured tooth # Throat exam: normal inspection, uvula midline - Neck Neck exam: Present: full ROM, Supple. Absent: tenderness, meningismus, Posterior Lymphadenopathy, Anterior Lymphadenopathy - Respiratory Respiratory exam: Present: lungs clear equal bilaterally. Absent: respiratory distress, wheezes, rales, rhonchi, accessory muscle use - Cardiovascular Cardiovascular Exam: Present: regular rate, normal rhythm, normal heart sounds. Absent: murmur, rubs, gallop, clicks - GI/Abdominal GI/Abdominal exam: Present: soft, non tender, normal bowel sounds. Absent: guarding, rebound, rigid , mass, bruit - Extremities Exam Extremities exam: Present: normal inspection, full ROM, neurovascularly intact - Back Exam Back exam: Present: normal inspection, full ROM. Absent: tenderness - Neurological Exam Neurological exam: Present: alert, oriented X3, CN II-XII intact - Expanded Neurological Exam Patient oriented to: Present: person, place, time Speech: Present: fluid speech - Psychiatric Psychiatric exam: Present: normal affect, normal mood - Skin Skin Color: Present: Normal, [place] Skin exam: Present: warm, dry - Expanded Skin Exam Type of lesion: Absent: rash Dental MDM - Differential Diagnosis Dental DD: Considered: Alveolar fracture, Tooth avulsion, Tooth eruption, Tooth fracture, subluxation, Other, Alveolar osteritis, ANUG, Facial cellulitis, Periapical abscess, Periodontal abscess, Post-extraction bleeding, Pulpitis, Trigeminal neuralgia ED Discharge Summary - Discharge Data Clinical Impression: Pain, dental, Dental cavities Condition: Good Disposition: 01 HOME, SELF-CARE Admit is Medically Necessary, Anticipated Stay >2 Midnights:: No Referrals: LEOBARDO MENDEZ MD [Primary Care Provider] - Additional Instructions: FOLLOW UP WITH YOUR PCP OR THE BACK UP PHYSICIAN LISTED ON HOME GOING INSTRUCTIONS IF NOT FEELING BETTER IN 3 DAYS RETURN TO THE ED IF SYMPTOMS WORSEN OR ANY OTHER CONCERNS SWISH WITH FLUORIDE MOUTHWASH AND WATER THREE TIMES A DAY FOLLOW UP WITH A DENTIST OF YOUR CHOICE OR YOU MAY CALL AYAKA ARAGON, [facility] [place], [place] [phone] DASH LEAL [facility] [place], [place] [phone] [facility] [place] [address] The Dental Emergency Care Clinic at [facility] [employer] is a walk-in service available to adult patients 18 and over. Emergency care is provided by third and fourth year dental students under the supervision of [facility] faculty dentists. The Clinic is for adult patients, 18 and over, who are experiencing: [id number] pain that is not relieved by taking pain medications oral bleeding facial/oral swelling To become a patient of the [employer], call the Information Desk at [phone] (choose option 2) to set up an evaluation appointment. Emergency Patients younger than 18 should seek care at [facility] (walk-in hours are 9:00a.m. -11:00 a.m. and 1:00p.m.-3:00 p.m. weekdays). for more information. Hours of Operation Tuesday - : 8:30 a.m. - 1:30 p.m. Limited to 30 patients [place]ro: 8:30 a.m. - 11:30 a.m. Limited to 20 patients OARRS Report Reviewed: No Home Medications: Ambulatory Orders Medication Instructions Recorded Diltiazem HCl [Cartia Xt] 120 mg PO DAILY 12/13/16 Pantoprazole Sodium [Protonix 20 20 mg PO DAILY 12/13/16 mg Tablet] Home medications and allergies reviewed: Yes Time Seen by Provider: 03/13/17 17:00 Patient seen by Midlevel: Independently - Consultation I saw and examined the patient: Yes Nurses Notes Reviewed and Agreed With?: Yes - Dictation Amendments/Documentation: Ripple TV Document Only Electronically Generated By: THOMAS JIMENEZ PA-C Generated Date/Time: 03/13/171706 Electronically Signed By: THOMAS FOWLER PA-C Signed Date/Time 03/13/171710 Co Signed Electronically By: <Electronically signed by JESUS CAMPUZANO MD> <Electronically signed by JESUS CAMPUZANO MD> Co Signed Date/Time: 03/13/17180903/13/171809 CC: LEOBARDO MENDEZ MD ALLERGIES ALLERGIES DATE TYPE / CODE NAME / CODE REACTION SEVERITY SOURCE 03/07/2018 Drug No Known Unknown Garrick Allergy/909358653(S Allergies/F0019 Replaced by [facility] [place]) [address](RXNORM) Hospital Repository 11/28/2017 Drug No Known Drug UNKNOWN Zaira Ortega Allergy/877011514(S Allergies/F0019 [facility] [place]) [address](RXNORM) Repository Miscellaneous No Known Drug Moderate [facility] Allergy/115672687(S [facility] (Qualifier Repository Value) ENCOUNTERS ENCOUNTERS ADMIT/DISCHARGE ACCOUNT NUMBER ADMITTING ENCOUNTER LOCATION SOURCE CLASS 03/07/2018/03/07/19 [id number] Emergency Forsan Forsan 19 [facility] ding:ED Repository 12/13/2017/12/14/19 [id number] DEO NEGRON Emergency Buildin[address] [place] [address] 18 DO Room: ERBed: [facility] Repository 12/10/2017/12/11/19 [id number] Emergency CHBuilding:E Dominique 18 [facility] Repository 11/28/2017 [id number] Ambulatory Zaira Mensees [facility] ding:LAB Repository 11/28/2017/11/29/19 [id number] Emergency Zaira Ortega [address] [place] [address] ding:ED Repository 08/08/2017/08/09/19 [id number] Emergency Zaira Ortega [address] [place] [address] ding:ED Repository 07/05/2017/07/06/19 [id number] Emergency CHBuilding:E Coleman 18 [facility] Repository 06/30/2017/07/01/19 [id number] Emergency CHBuilding:E Coleman 18 [facility] Repository 06/11/2017/06/12/19 [id number] Emergency CHBuilding:E Coleman 18 [facility] Repository 05/12/2017 [id number] Ambulatory Building:EEG [facility] Repository 05/11/2017/05/12/19 [id number] Ambulatory Buildin [place] [address] [facility] Repository 05/06/2017/05/07/19 [id number] Emergency CHBuilding:E Coleman 18 [facility] Repository 05/04/2017/05/05/19 [id number] Emergency CHBuilding:E Coleman 18 [facility] Repository 05/04/2017/05/05/19 [id number] Ambulatory CHBuilding:H Coleman 18 [facility] Repository 05/03/2017/05/05/19 [id number] Emergency CHBuilding:E Coleman 18 [facility] Repository 03/24/2017 [id number] Ambulatory CHBuilding:P Coleman [facility] Repository 03/24/2017/03/24/19 [id number] Ambulatory Buildin[address] [place] [address] 18 [facility] Repository 03/13/2017/03/13/19 [id number] Emergency CHBuilding:E Coleman 18 [facility] Repository PAYERS PAYERS ENCOUNTER GUARANTOR PAYER SUBSCRIBER SOURCE 03/07/2018 ROX Adkins Primary Insurance:SELF NOT GIVENANDRÉS Calderon PAY INSURANCEPolicy Community AGGARWAL Number: [place], [place] Date:2018-03-07 Repository [address]Vth: (HP) 12/10/2017 ROX NIKKI Primary Insurance:HCFS ROX NIKKI [id number] PENDINGPolicy Number: ALYSIACORYB: [facility] 1169 [address] [id number] Date: [id number] [facility] [place] [address] 116[address] Repository [address]Yis: [phone], [phone] (HP) [place] [address]Fuf: (HP) 11/28/2017 ROX J Primary ROX J Zaira Ortega [id number] Insurance:WORKERS' CINDYB: [facility] COMPENSATIONPolicy [id number] Repository [address], Number: 3 [facility] [place] [address]Mik: [id number] Date: [address] [address]Kmh: (HP) (HP) 08/08/2017 ROX J Primary Insurance:SELF ROX J Zaira Ortega [id number] PAYPolicy Number: CINDYB: [facility] Effective Date: [id number] Repository [address], 3 [facility] [place] [place] [address]Iwu: [address], [place] [address]Nix: (HP) (HP) 07/05/2017 ROX NIKKI Primary ROX NIKKI Coleman [id number] [facility] Insurance:ROX BADILLO: [address] JONPolicy Number: [id number] [facility] [id number] [address] Repository , [place] [address]Uod: Date:2016-11-[facility], [place] [address]Nkh: (HP) (HP) 06/30/2017 ROX NIKKI Primary ROX NIKKI Coleman [id number] Insurance:ROX BADILLO: [facility] JONPolicy Number: [id number] Hospital [id number] Repository [facility] [place] Date:2016-11-[address] [place], [address]Frr: (150 [place] [address]Dpf: [phone] (HP) (HP) 06/11/2017 ROX NIKKI Primary ROX BATESDOB: Coleman [id number] [facility] Insurance:CARESOURCEPoli [id number] [address] cy Number: [address] [facility] [id number] [place] [address]Tql: Date:1480-84-98[place] [address]Wma: [address] [place] [address]SI: (HP) () 05/12/2017 ROX J Primary ROX J Francesca BATDOB: Insurance:CARESOURCEPoli BATDOB: HealthCare cy Number: [id number] [id number] [address] Repository [place], [place] Date: [place], [place] [address]Gvb: [phone]: (HP) [phone] (HP) 05/11/2017 ROX NIKKI Primary ROX NIKKI Francesca BATDOB: Insurance:CARESOURCEPoli BATDOB: HealthCare S cy Number: [id number] [address] [id number] [facility] Repository [place], [place] Date: [place], [place] [address]Xle: [phone]: (HP) [phone] (HP) 05/11/2017 Secondary ROX NIKKI Francesca Insurance:MEDICAIDPolicy [facility]: HealthCare Number: [id number] System [id number] [address] Repository Date: [place], [place] [address]Mlm: () 05/06/2017 ROX NIKKI Primary ROX BATESDOB: Coleman [id number] [facility] Insurance:CARESOURCEPoli [id number] [address] cy Number: [address] [place] [id number] [place], Repository , [place] [address]Fyl: Date:1228-22-09HB [facility] [place] [address]Geb: [address], [place] [address]HK: () () 05/04/2017 ROX NIKKI Primary ROX BATESDOB: Coleman [id number] [facility] Insurance:CARESOURCEPoli [id number] [address] cy Number: [address] [place] [id number] STREETC[place], Rep[place] , [place] [address]Lzs: Date:6706-46-65EX [facility] [place] [address]Wmw: [address] [place] [address]ZX: () () 05/04/2017 ROX NIKKI Primary ROX BATALEXIADOB: Coleman [id number] Insurance:CARESOURCEPoli [id number] [facility] cy Number: [address] [id number] [place]RE[place], Repository [address] [place], [place] [address], [place] Date:5421-47-73NZ [facility] [place] [address]Gor: [phone]: [phone], [place] [address]SG: [phone] () () 05/03/2017 ROX NIKKI Primary ROX BATESDOB: Coleman [id number] [facility] Insurance:CARESOURCEPoli [id number] [address] cy Number: [address] [place]RE[place] [id number] STREETC[place], [place] , [place] [address]Gwy: Date:1107-07-09JA [address] [place] [address]Hny: [address], [place] [address]DQ: () () 03/24/2017 ROX NIKKI Primary ORX BATESDOB: Coleman [id number] Insurance:CARESOURCEPoli [id number] [place], [place] cy Number: [address] [address]Pyy: [phone] [id number] STREETC[place], Repository [phone] () Date:7883-11-29HG [place] [place] [address]Vpt: [place], [place] [address]UQ: () 03/24/2017 ROX NIKKI Primary ROX NIKKI Francesca BATESDOB: Insurance:CARESOURCEPnyu [facility]: HealthCare S cy Number: [id number] System 6TH [id number] [facility] Repository [place], [place] Date: [place], [place] [address]Hkf: [phone]: (HP) [phone] (HP) 03/24/2017 Secondary ROX NIKKI Francesca Insurance:[facility]IDPolBoth[facility] Center[facility]: HealthCare Number: [id number] System [id number] [address] Repository Date: [place], [place] [address]Vbq: () 03/13/2017 ROX NIKKI Primary ROX BATESDOB: Coleman [id number] [facility] Insurance:CARESOURCEPoli [id number] [place], [place] cy Number: [address] [id number]: (134) [id number] [place] Rep[place] [phone] () Date:[id number] [place] [address]Sdz: [address], [place] [address]VD: ()
== END 2018-03-07 18:27 | disposition home or self-care (01) ==
PROVIDERS: Emergency Provider Emergency Medicine
DX: I10 Essential (primary) hypertension (principal); M54.9 Dorsalgia, unspecified; F17.210 Nicotine dependence, cigarettes, uncomplicated
CPT/HCPCS: 80048; 81001; 85025; 99283; A4216